=== PATIENT | male | born 1990 | race Caucasian/White ===

== ENCOUNTER 2024-03-13 20:18 | Inpatient (IN) | payer OTHER, MEDICAID, SELFPAY ==
[2024-03-13 20:47] VITALS: BP 140/90; PULSE 80; O2SAT 99; BMI 25.8
[2024-03-13 21:39] LABS: MANUAL DIFF FLAG NO
[2024-03-13 21:45] LABS: Basophils Absolute Auto 0.1 X10*3/uL (0.0-0.2); Eosinophils Absolute Auto 0.8 X10*3/uL (0.0-0.4); Eosinophils Percent Auto 15.9 % (0-4); Hematocrit 44.2 % (42.0-52.0); Hemoglobin 15.5 g/dl (14.0-18.0); Imm Gran Abs Auto 0.01 X10*3/uL (0.00-0.03); Imm Gran Pct Auto 0.2 % (0.0-0.4); Lymphocytes Absolute Auto 1.9 X10*3/uL (1.2-4.9); Mean Corpuscular HGB Conc 35.1 g/dl (31.0-36.0); Mean Corpuscular Hemoglobin 31.2 pg (27.0-33.0); Mean Corpuscular Volume 88.9 fL (80.0-98.0); Mean Platelet Volume 10.4 fL (9.4-12.4); Monocytes Absolute Auto 0.4 X10*3/uL (0.1-1.2); Monocytes Percent Auto 7.4 % (2-11); Neutrophils Absolute Auto 1.9 x10*3/uL (2.0-8.3); Neutrophils Percent Auto 37.5 % (45-73); Platelet Count 192 X10*3/uL (160-400); Red Blood Count 4.97 X10*6/uL (4.60-5.80); Red Cell Distribution Width 12.4 % (11.0-16.0); White Blood Count 5.1 X10*3/uL (4.8-10.8)
[2024-03-13 21:59] LABS: Amphetamine Screen Urine Not Detected (Not Detect); Barbiturates, Urine Not Detected (Not Detect); Benzodiazepines Screen Urine Not Detected (Not Detect); Buprenorphine Scr Not Detected (Not Detect); Cannabinoid Screen Urine POSITIVE (Not Detect); Cocaine Screen Urine Not Detected (Not Detect); Fentanyl, urine Not Detected (Not Detect); Methadone Screen, Urine Not Detected (Not Detect); Opiate Screen Urine Not Detected (Not Detect); Oxycodone Screen Urine Not Detected (Not Detect); Phencyclidine Screen Urine Not Detected (Not Detect)
[2024-03-13 22:08] LABS: Alanine Aminotransferase 21 U/L (0-40); Albumin Level 4.2 g/dL (3.5-5.0); Alkaline Phosphatase 52 U/L (39-117); Anion Gap 12 (12-20); Aspartate Amino Transferase 26 U/L (5-37); Bilirubin Direct 0.3 mg/dL (0.0-0.5); Bilirubin Total 0.8 mg/dL (0.0-1.0); Blood Urea Nitrogen 9 mg/dL (9-16); Calcium 9.5 mg/dL (8.4-10.2); Carbon Dioxide 25 mmol/L (22-29); Chloride 106 mmol/L (96-108); Creatinine Clr Calc Pharmacy 121.8; Estimated Glomerular Filt Rate > 60; Ethanol < 10 mg/dL; Glucose Random 101 mg/dL (60-115); Potassium 3.6 mmol/L (3.3-5.1); Sodium 139 mmol/L (135-145); Total Protein 7.2 g/dL (6.5-8.0)
[2024-03-13 22:45] VITALS: BP 123/78; PULSE 58; RESP 16; TEMP 37.3; O2SAT 100
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
[2024-03-14 06:00] VITALS: RESP 16
--- NOTE | 2024-03-14 06:09 | PC.NURSE ---
Pt calm and cooperative throughout the night. Slept well. Plan for re-evaluation by CARE team in the AM.
--- NOTE | 2024-03-14 07:02 | PC.NURSE ---
Assumed care of PT a 0645. At this time the PT is observed to be resting quietly in their bed. No distress observed, breathing is even and unlabored.
[2024-03-14 08:15] LABS: Appearance Urine Clear; Color Urine Yellow; Glucose Urine UA Negative (Negative); Leukocyte Esterase Urine Negative (Negative); Nitrite Urine Negative (Negative); Specific Gravity - Urine 1.025 (1.005-1.025); Urine Blood Negative (Negative); Urine Ketones Negative (Negative); Urine Protein Negative (Neg-Trace)
--- NOTE | 2024-03-14 11:38 | MHC.CARE ---
Pt will be an inpatient bedsearch
[2024-03-14] MEDS: Nicotine Polacrilex 2 MG GUM BUCCAL ×3 (12:49→23:49)
[2024-03-14] MEDS: LORazepam 1 MG TABLET PO (16:59)
--- NOTE | 2024-03-14 18:50 | PC.NURSE ---
Assumed care of patient at 1845. Patient observed to be calmly speaking on the phone/ No distress noted.
--- NOTE | 2024-03-14 22:45 | PC.NURSE ---
Patient up and wandering around. was trying to peer into others rooms. Redirected patient. yardage control clerk utilized to communicated with patient.
--- NOTE | 2024-03-14 22:50 | PC.NURSE ---
Patient very adament about getting his suitcase. historical interpreter assisted staff in understanding and assisting.
[2024-03-14] MEDS: LORazepam 1 MG TABLET 2 MG PO (23:46)
--- NOTE | 2024-03-14 23:50 | PC.NURSE ---
patient become loud and boisterous, ativan order obtained. patient took ativan without issue and is currently pacing around the unit
--- NOTE | 2024-03-14 23:55 | PC.NURSE ---
Patient re-entered room and looked at camera and made slashing action across his neck, then came out to the family room and took a pillow, punched the pillow, and returned to room.
--- NOTE | 2024-03-15 00:14 | PC.NURSE ---
patient noted to have taken gown off, moved chair in front of door and now doing push-ups on the ground. Will continue to monitor.
--- NOTE | 2024-03-15 00:20 | PC.NURSE ---
Patient at this point pacing back and forth. Speaking loudly in hungarian. newsperson called for assistance.
[2024-03-15 07:31] VITALS: RESP 16
--- NOTE | 2024-03-15 07:47 | PC.NURSE ---
Assumed care of patient at 0645, patient appears to be manic this am, tangential/pressured speech, delusions about having millions of dollars to spend but being poor at the same time. Pt reports he does not need to be here. Patient aware of plan of care for inpatient bedsearch at this time
--- NOTE | 2024-03-15 08:00 | PHA.MEDREC ---
Pharmacy Consult ? Medication Reconciliation Pharmacy has reviewed the medication reconciliation completed by nursing. Confirmed with nursing that the patient is currently not on any home medications. Pt has not taken any meds in over two years.
[2024-03-15] MEDS: Nicotine Polacrilex 2 MG GUM BUCCAL (10:28)
[2024-03-15 13:24] VITALS: BP 137/81; PULSE 88; RESP 16; TEMP 36.8; O2SAT 100
[2024-03-15 13:25] VITALS: BMI 30.7
[2024-03-15] MEDS: LORazepam 1 MG TABLET 2 MG PO (14:33)
[2024-03-15] MEDS: Nicotine Polacrilex 2 MG GUM 4 MG BUCCAL ×2 (14:35→20:42)
[2024-03-15] MEDS: Nicotine 21 MG PATCH.TD24 TRANSDERMA (15:40)
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
[2024-03-15 20:00] VITALS: BP 145/85; PULSE 77; RESP 16; O2SAT 100
[2024-03-15] MEDS: OLANZapine ODT 10 MG TAB.RAPDIS TRANSLINGU (20:36)
[2024-03-15] MEDS: traZODone HCL 50 MG TABLET PO (20:41)
[2024-03-15] MEDS: Acetaminophen 325 MG TABLET 650 MG PO (20:41)
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
[2024-03-16] MEDS: Nicotine Polacrilex 2 MG GUM 4 MG BUCCAL ×3 (09:59→13:11)
[2024-03-16] MEDS: Acetaminophen 325 MG TABLET 650 MG PO (09:59)
[2024-03-16] MEDS: Nicotine 21 MG PATCH.TD24 TRANSDERMA (09:59)
[2024-03-16] MEDS: LORazepam 1 MG TABLET PO ×2 (13:09→21:53)
[2024-03-16] MEDS: OLANZapine 5 MG TABLET PO (13:09)
[2024-03-16 20:00] VITALS: BP 160/90; PULSE 71; RESP 16; TEMP 36.5; O2SAT 100
[2024-03-16] MEDS: OLANZapine 10 MG TABLET PO (21:54)
[2024-03-16] MEDS: OLANZapine ODT 10 MG TAB.RAPDIS 20 MG TRANSLINGU (22:01)
[2024-03-16] MEDS: traZODone HCL 50 MG TABLET PO (22:02)
[2024-03-17] MEDS: Nicotine 21 MG PATCH.TD24 TRANSDERMA (06:52)
[2024-03-17] MEDS: Nicotine Polacrilex 2 MG GUM 4 MG BUCCAL ×3 (06:52→18:35)
[2024-03-17 08:00] VITALS: BP 166/96; PULSE 83; RESP 18; TEMP 36.4; O2SAT 100
[2024-03-17 09:44] LABS: Ammonia 29 umol/L (13-55)
[2024-03-17 09:46] LABS: Estimated Average Glucose 105 mg/dL; Hemoglobin A1C 141.7104 umol/L; Hemoglobin A1c % 5.3 % (<6.0); Total Hemoglobin (HGBA1C) 4139.7183 umol/L
[2024-03-17] MEDS: OLANZapine 10 MG TABLET PO ×2 (09:53→11:26)
[2024-03-17 10:03] LABS: Cholesterol 103 mg/dL (<200); HDL Cholesterol 35 mg/dL (>40); LDL Cholesterol Calculated 42 mg/dL (<100); Triglycerides 131 mg/dL (<150)
[2024-03-17 10:11] LABS: TSH reflex Free T4 1.57 uIU/mL (0.32-4.0)
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
[2024-03-17] MEDS: LORazepam 1 MG TABLET PO ×2 (11:28→20:14)
[2024-03-17] MEDS: HaloperidoL 5 MG TABLET 10 MG PO (11:52)
[2024-03-17] MEDS: diphenhydrAMINE HCL 25 MG CAPSULE 50 MG PO (11:52)
[2024-03-17] MEDS: LORazepam 1 MG TABLET 2 MG PO (11:52)
[2024-03-17 20:00] VITALS: BP 139/81; PULSE 91; RESP 18; TEMP 36.3; O2SAT 98
[2024-03-17] MEDS: risperiDONE 2 MG TABLET PO (20:14)
[2024-03-17] MEDS: traZODone HCL 50 MG TABLET PO (20:14)
[2024-03-17] MEDS: OLANZapine ODT 10 MG TAB.RAPDIS 20 MG TRANSLINGU (20:14)
[2024-03-17] MEDS: Acetaminophen 325 MG TABLET 650 MG PO (20:20)
[2024-03-18] MEDS: traZODone HCL 50 MG TABLET PO ×2 (00:41→22:39)
[2024-03-18 08:00] VITALS: BP 141/102; PULSE 71; TEMP 36.3; O2SAT 100
[2024-03-18] MEDS: risperiDONE 2 MG TABLET PO ×2 (08:16→22:39)
[2024-03-18] MEDS: LORazepam 1 MG TABLET PO ×3 (08:16→17:43)
[2024-03-18] MEDS: hydrOXYzine HCL 25 MG TABLET PO ×2 (08:16→17:43)
[2024-03-18] MEDS: Nicotine 21 MG PATCH.TD24 TRANSDERMA (08:19)
[2024-03-18] MEDS: OLANZapine 10 MG TABLET PO ×2 (10:15→17:43)
[2024-03-18] MEDS: Acetaminophen 325 MG TABLET 650 MG PO (10:19)
[2024-03-18] MEDS: chlorproMAZINE HCl 100 MG TABLET PO (10:20)
--- NOTE | 2024-03-18 10:36 | HO.PSYCHPN ---
Subjective Subjective Date of Service: 03/18/24 Reason For Visit: Psychotic/manic Subjective Notes: Section 12B Interim History: Patient was seen and discussed in rounds today. Records and plans were reviewed. He continues to be irritable, pacing, yelling at times and has been having self dialogue. Around 10:00 o'clock he became loud on confront active with another patient and a code was called but he agreed to take p.o. Thorazine 100 mg with good effect and he is in his room. He has been medication compliant. Not attending any groups. No side effects reported. Attending Groups: No Review of Systems Review of Systems Yes Unobtainable due to mental status Mental Status Exam Mental Status Exam Narrative: Could not do a formal exam. Irritable, loud and confront active. Diagnostics Vital Signs (24Hr): Vital Signs - 24 hr 03/17/24 20:00 03/18/24 08:00 Temperature 97.4 F 97.4 F Pulse Rate 91 71 Respiratory Rate 18 Blood Pressure 139/81 141/102 H Pulse Oximetry 98 100 Oxygen Delivery Method Room Air Room Air BMI result Body Mass Index 30.7 Labs 03/13/24 21:31 03/13/24 21:31 Labs: Laboratory Results - last 48 hr 03/17/24 09:10 Estimat Average Glucose 105 Hemoglobin A1c % 5.3 Ammonia 29 Triglycerides 131 Cholesterol 103 LDL Cholesterol, Calc 42 HDL Cholesterol 35 L TSH 1.57 Medications Medications Current Medications Acetaminophen (Acetaminophen 325 Mg Tablet) 650 mg PO Q6H PRN PRN Reason: Headache/Pain Mild Scale (1-3) Last Admin: 03/18/24 10:19 Dose: 650 mg Al Hydroxide/Mg Hydroxide (Magnesium Hydrox/Alum Hydrox 30 Ml Oral.Susp) 30 ml PO Q6H PRN PRN Reason: Heartburn/Nausea Hydroxyzine HCl (Hydroxyzine Hcl 25 Mg Tablet) 25 mg PO Q6H PRN PRN Reason: Anxiety Last Admin: 03/18/24 08:16 Dose: 25 mg Lorazepam (Lorazepam 1 Mg Tablet) 1 mg PO TID PRN PRN Reason: anxiety/agitation Last Admin: 03/18/24 10:18 Dose: 1 mg Magnesium Hydroxide (Milk Of Magnesia 30 Ml Oral.Susp) 30 ml PO DAILY PRN PRN Reason: Constipation Nicotine (Nicotine 21 Mg Patch.Td24) 21 mg TRANSDERMA DAILY PRN PRN Reason: smoking cessation Last Admin: 03/18/24 08:19 Dose: 21 mg Nicotine Polacrilex (Nicotine Polacrilex 2 Mg Gum) 4 mg BUCCAL Q2H PRN PRN Reason: Nicotine Cravings Last Admin: 03/17/24 18:35 Dose: 4 mg Olanzapine (Olanzapine 10 Mg Tablet) 10 mg PO TID PRN PRN Reason: agitation Last Admin: 03/18/24 10:15 Dose: 10 mg Olanzapine (Olanzapine Odt 10 Mg Tab.Rapdis) 20 mg TRANSLINGU BEDTIME ZEINA Last Admin: 03/17/24 20:14 Dose: 20 mg Risperidone (Risperidone 2 Mg Tablet) 2 mg PO BID [facility] Last Admin: 03/18/24 08:16 Dose: 2 mg Trazodone HCl (Trazodone Hcl 50 Mg Tablet) 50 mg PO BEDTIME MRX1 PRN PRN Reason: Insomnia Last Admin: 03/18/24 00:41 Dose: 50 mg Allergies Allergies Allergy/AdvReac Type Severity Reaction Status Date / Time No Known Allergies Allergy Verified 03/13/24 20:59 Assessment & Plan Assessment & Plan (1) Schizoaffective disorder, bipolar type: Status: Acute Code(s): F25.0 - Schizoaffective disorder, bipolar type Plan Mr. Knox is a 33 year-old male with hx of schizoaffective disorder who was brought in by police due to trying to enter other people's homes, presenting as paranoid. He came to [facility] from [place] two months ago to receive psychiatric tx. He was staying at his sister's house but was asked to leave when he suggested sexual intercourse to his niece. He presents as very paranoid, thinking sister is killing people and paid 11 million dollars to keep him in the hospital. 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 Pending collateral information. PLAN 1. Admit to M5, sect 12b, 15 minutes checks 2. increase olanzapine 20mg po qhs. 3. obtain collateral information 4. aftercare planning. 03/18: Continue current regimen and plans. Thorazine p.o. was given this morning Reason for continued inpatient stay Substantial Risk for: rapid decompensation and med/psych decompensation Time Spent With Patient Time: Total time managing care of this patient today ____ minutes.
[2024-03-18] MEDS: Nicotine Polacrilex 2 MG GUM 4 MG BUCCAL ×2 (15:26→17:44)
[2024-03-18] MEDS: OLANZapine ODT 10 MG TAB.RAPDIS 20 MG TRANSLINGU (22:39)
[2024-03-19] MEDS: risperiDONE 2 MG TABLET PO ×2 (07:45→20:50)
[2024-03-19] MEDS: Nicotine 21 MG PATCH.TD24 TRANSDERMA (07:48)
[2024-03-19] MEDS: LORazepam 1 MG TABLET PO ×3 (08:15→20:58)
--- NOTE | 2024-03-19 08:20 | P.PNPSI_ITS ---
Subjective Subjective Date of Service: 03/19/24 Reason For Visit: Psychotic/manic Subjective Notes: Section 12B Interim History: Patient was seen and discussed in rounds today. Records and plans were reviewed. He has been quite psychotic and yesterday had a confrontation with another patient but responded well to security being called and receiving Thorazine 100 mg which was quite helpful. I ordered that as 50 mg q.4 hours p.r.n. for him today. He continues to have lot of self dialogue. Eating and sleeping adequately. Medication Compliance: Yes Side effects from medications: No Attending Groups: No Review of Systems Review of Systems Yes Unobtainable due to mental status Mental Status Exam Mental Status Exam Narrative: In today's visit he appears calmer. He is interactive with in his means. Appears to be responding to internal stimuli. No suicidal ideations expressed. Cognitively could not be assessed. Judgment is impaired. Diagnostics Vital Signs (24Hr): BMI result Body Mass Index 30.7 Labs 03/13/24 21:31 03/13/24 21:31 Labs: Laboratory Results - last 48 hr 03/17/24 09:10 Estimat Average Glucose 105 Hemoglobin A1c % 5.3 Ammonia 29 Triglycerides 131 Cholesterol 103 LDL Cholesterol, Calc 42 HDL Cholesterol 35 L TSH 1.57 Medications Medications Current Medications Acetaminophen (Acetaminophen 325 Mg Tablet) 650 mg PO Q6H PRN PRN Reason: Headache/Pain Mild Scale (1-3) Last Admin: 03/18/24 10:19 Dose: 650 mg Al Hydroxide/Mg Hydroxide (Magnesium Hydrox/Alum Hydrox 30 Ml Oral.Susp) 30 ml PO Q6H PRN PRN Reason: Heartburn/Nausea Chlorpromazine HCl (Chlorpromazine Hcl 25 Mg Tablet) 50 mg PO Q4H PRN PRN Reason: agitation Hydroxyzine HCl (Hydroxyzine Hcl 25 Mg Tablet) 25 mg PO Q6H PRN PRN Reason: Anxiety Last Admin: 03/18/24 17:43 Dose: 25 mg Lorazepam (Lorazepam 1 Mg Tablet) 1 mg PO TID PRN PRN Reason: anxiety/agitation Last Admin: 03/19/24 08:15 Dose: 1 mg Magnesium Hydroxide (Milk Of Magnesia 30 Ml Oral.Susp) 30 ml PO DAILY PRN PRN Reason: Constipation Nicotine (Nicotine 21 Mg Patch.Td24) 21 mg TRANSDERMA DAILY PRN PRN Reason: smoking cessation Last Admin: 03/19/24 07:48 Dose: 21 mg Nicotine Polacrilex (Nicotine Polacrilex 2 Mg Gum) 4 mg BUCCAL Q2H PRN PRN Reason: Nicotine Cravings Last Admin: 03/18/24 17:44 Dose: 4 mg Olanzapine (Olanzapine 10 Mg Tablet) 10 mg PO TID PRN PRN Reason: agitation Last Admin: 03/18/24 17:43 Dose: 10 mg Olanzapine (Olanzapine Odt 10 Mg Tab.Rapdis) 20 mg TRANSLINGU BEDTIME ZEINA Last Admin: 03/18/24 22:39 Dose: 20 mg Risperidone (Risperidone 2 Mg Tablet) 2 mg PO BID ZEINA Last Admin: 03/19/24 07:45 Dose: 2 mg Trazodone HCl (Trazodone Hcl 50 Mg Tablet) 50 mg PO BEDTIME MRX1 PRN PRN Reason: Insomnia Last Admin: 03/18/24 22:39 Dose: 50 mg Allergies Allergies Allergy/AdvReac Type Severity Reaction Status Date / Time No Known Allergies Allergy Verified 03/13/24 20:59 Assessment & Plan Assessment & Plan (1) Schizoaffective disorder, bipolar type: Status: Acute Code(s): F25.0 - Schizoaffective disorder, bipolar type Plan Mr. Knox is a 33 year-old male with hx of schizoaffective disorder who was brought in by police due to trying to enter other people's homes, presenting as paranoid. He came to [facility] from [place] two months ago to receive psychiatric tx. He was staying at his sister's house but was asked to leave when he suggested sexual intercourse to his niece. He presents as very paranoid, thinking sister is killing people and paid 11 million dollars to keep him in the hospital. 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 Pending collateral information. PLAN 1. Admit to M5, sect 12b, 15 minutes checks 2. increase olanzapine 20mg po qhs. 3. obtain collateral information 4. aftercare planning. 03/18: Continue current regimen and plans. Thorazine p.o. was given this morning 03/18: Continue current regimen and plans. Thorazine 50 mg q.4 hours p.r.n.. Patient educated on: medication risk/benefits Reason for continued inpatient stay Substantial Risk for: rapid decompensation and med/psych decompensation Time Spent With Patient Time: Total time managing care of this patient today ____ minutes.
[2024-03-19 08:25] VITALS: BP 119/77; PULSE 109; RESP 18; TEMP 36.6; O2SAT 99
[2024-03-19] MEDS: hydrOXYzine HCL 25 MG TABLET PO (10:19)
[2024-03-19] MEDS: OLANZapine 10 MG TABLET PO (10:19)
[2024-03-19] MEDS: chlorproMAZINE HCl 25 MG TABLET 50 MG PO ×2 (10:19→20:58)
[2024-03-19] MEDS: Acetaminophen 325 MG TABLET 650 MG PO (10:20)
[2024-03-19] MEDS: Nicotine Polacrilex 2 MG GUM 4 MG BUCCAL ×3 (10:21→20:32)
[2024-03-19 20:00] VITALS: BP 126/78; PULSE 98; TEMP 36.4; O2SAT 100
[2024-03-19] MEDS: OLANZapine ODT 10 MG TAB.RAPDIS 20 MG TRANSLINGU (20:57)
[2024-03-19] MEDS: traZODone HCL 50 MG TABLET PO (20:58)
[2024-03-20] MEDS: Nicotine Polacrilex 2 MG GUM 4 MG BUCCAL ×3 (02:58→19:52)
[2024-03-20] MEDS: risperiDONE 2 MG TABLET PO ×2 (08:35→20:16)
[2024-03-20] MEDS: LORazepam 1 MG TABLET PO (08:35)
[2024-03-20] MEDS: Nicotine 21 MG PATCH.TD24 TRANSDERMA (08:41)
--- NOTE | 2024-03-20 09:32 | HO.PSYCHPN ---
Subjective Subjective Date of Service: 03/20/24 Reason For Visit: Psychotic/manic Subjective Notes: Section 12B Interim History: Patient was seen and discussed in rounds today. Records and plans were reviewed. He was seen with an instructor of nursing. He continues to be on one-to-one with some episodes of irritability and loud speech. He appears to be less delusional and doing better with boundaries. Some lability reported. No complaints or side effects. No changes were made today Medication Compliance: Yes Side effects from medications: No Attending Groups: No Review of Systems Review of Systems Yes all other systems are reviewed and are negative Mental Status Exam Mental Status Exam Narrative: In today's visit he appears calmer. He is interactive with in his means. Appears to be responding to internal stimuli. No suicidal ideations expressed. No SI. Cognitively could not be assessed. Judgment is impaired. Diagnostics Vital Signs (24Hr): Vital Signs - 24 hr 03/19/24 20:00 Temperature 97.6 F Pulse Rate 98 Blood Pressure 126/78 Pulse Oximetry 100 Oxygen Delivery Method Room Air BMI result Body Mass Index 30.7 Labs 03/13/24 21:31 03/13/24 21:31 Medications Medications Current Medications Acetaminophen (Acetaminophen 325 Mg Tablet) 650 mg PO Q6H PRN PRN Reason: Headache/Pain Mild Scale (1-3) Last Admin: 03/19/24 10:20 Dose: 650 mg Al Hydroxide/Mg Hydroxide (Magnesium Hydrox/Alum Hydrox 30 Ml Oral.Susp) 30 ml PO Q6H PRN PRN Reason: Heartburn/Nausea Chlorpromazine HCl (Chlorpromazine Hcl 25 Mg Tablet) 50 mg PO Q4H PRN PRN Reason: agitation Last Admin: 03/19/24 20:58 Dose: 50 mg Hydroxyzine HCl (Hydroxyzine Hcl 25 Mg Tablet) 25 mg PO Q6H PRN PRN Reason: Anxiety Last Admin: 03/19/24 10:19 Dose: 25 mg Lorazepam (Lorazepam 1 Mg Tablet) 1 mg PO TID PRN PRN Reason: anxiety/agitation Last Admin: 03/20/24 08:35 Dose: 1 mg Magnesium Hydroxide (Milk Of Magnesia 30 Ml Oral.Susp) 30 ml PO DAILY PRN PRN Reason: Constipation Nicotine (Nicotine 21 Mg Patch.Td24) 21 mg TRANSDERMA DAILY PRN PRN Reason: smoking cessation Last Admin: 03/20/24 08:41 Dose: 21 mg Nicotine Polacrilex (Nicotine Polacrilex 2 Mg Gum) 4 mg BUCCAL Q2H PRN PRN Reason: Nicotine Cravings Last Admin: 03/20/24 02:58 Dose: 4 mg Olanzapine (Olanzapine 10 Mg Tablet) 10 mg PO TID PRN PRN Reason: agitation Last Admin: 03/19/24 10:19 Dose: 10 mg Olanzapine (Olanzapine Odt 10 Mg Tab.Rapdis) 20 mg TRANSLINGU BEDTIME ZEINA Last Admin: 03/19/24 20:57 Dose: 20 mg Risperidone (Risperidone 2 Mg Tablet) 2 mg PO BID ZEINA Last Admin: 03/20/24 08:35 Dose: 2 mg Trazodone HCl (Trazodone Hcl 50 Mg Tablet) 50 mg PO BEDTIME MRX1 PRN PRN Reason: Insomnia Last Admin: 03/19/24 20:58 Dose: 50 mg Allergies Allergies Allergy/AdvReac Type Severity Reaction Status Date / Time No Known Allergies Allergy Verified 03/13/24 20:59 Assessment & Plan Assessment & Plan (1) Schizoaffective disorder, bipolar type: Status: Acute Code(s): F25.0 - Schizoaffective disorder, bipolar type Plan Mr. Knox is a 33 year-old male with hx of schizoaffective disorder who was brought in by police due to trying to enter other people's homes, presenting as paranoid. He came to [facility] from [place] two months ago to receive psychiatric tx. He was staying at his sister's house but was asked to leave when he suggested sexual intercourse to his niece. He presents as very paranoid, thinking sister is killing people and paid 11 million dollars to keep him in the hospital. 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 Pending collateral information. PLAN 03/17 may consider adding haldol scheduled instead of olanzapine. 03/20: Continue current plans and regimen Reason for continued inpatient stay Substantial Risk for: rapid decompensation Time Spent With Patient Time: Total time managing care of this patient today ____ minutes.
[2024-03-20] MEDS: OLANZapine 10 MG TABLET PO (09:50)
[2024-03-20] MEDS: chlorproMAZINE HCl 25 MG TABLET 50 MG PO (09:51)
[2024-03-20 10:22] VITALS: BP 139/85; PULSE 82; RESP 18; TEMP 36.4; O2SAT 98
[2024-03-20] MEDS: Acetaminophen 325 MG TABLET 650 MG PO (18:12)
[2024-03-20 20:00] VITALS: BP 123/61; PULSE 105; RESP 15; TEMP 36.4; O2SAT 99
[2024-03-20] MEDS: OLANZapine ODT 10 MG TAB.RAPDIS 20 MG TRANSLINGU (20:16)
[2024-03-20] MEDS: traZODone HCL 50 MG TABLET PO (20:16)
[2024-03-21] MEDS: traZODone HCL 50 MG TABLET PO (02:24)
[2024-03-21] MEDS: Nicotine Polacrilex 2 MG GUM 4 MG BUCCAL ×2 (02:24→06:54)
[2024-03-21] MEDS: chlorproMAZINE HCl 25 MG TABLET 50 MG PO ×2 (02:25→09:14)
[2024-03-21] MEDS: LORazepam 1 MG TABLET PO ×2 (02:25→10:15)
[2024-03-21] MEDS: Nicotine 21 MG PATCH.TD24 TRANSDERMA (06:52)
[2024-03-21 08:00] VITALS: BP 155/86; PULSE 100; RESP 18; TEMP 36.4; O2SAT 100
[2024-03-21] MEDS: risperiDONE 2 MG TABLET PO (09:10)
[2024-03-21] MEDS: OLANZapine 10 MG TABLET PO (09:14)
[2024-03-21] MEDS: hydrOXYzine HCL 25 MG TABLET PO (09:14)
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
[2024-03-21] MEDS: Haloperidol Lactate 5 MG/ML VIAL 10 MG IM (10:46)
[2024-03-21] MEDS: LORazepam 2 MG/ML VIAL IM (10:47)
[2024-03-21] MEDS: Divalproex Sodium 500 MG TABLET.DR 1000 MG PO (16:34)
[2024-03-21 18:32] VITALS: BP 133/72; PULSE 120; RESP 20; TEMP 36.5; O2SAT 98
[2024-03-22] MEDS: LORazepam 1 MG TABLET PO ×5 (00:59→20:11)
[2024-03-22] MEDS: traZODone HCL 50 MG TABLET PO (00:59)
[2024-03-22 08:05] VITALS: BP 142/94; PULSE 83; RESP 18; TEMP 36.6; O2SAT 100
[2024-03-22] MEDS: chlorproMAZINE HCl 25 MG TABLET 50 MG PO ×2 (08:17→11:57)
[2024-03-22] MEDS: Divalproex Sodium 500 MG TABLET.DR PO ×2 (08:17→20:11)
[2024-03-22] MEDS: risperiDONE 2 MG TABLET PO (08:17)
[2024-03-22] MEDS: chlorproMAZINE HCl 100 MG TABLET PO (13:59)
[2024-03-22] MEDS: LORazepam 1 MG TABLET 2 MG PO (14:33)
[2024-03-22] MEDS: HaloperidoL 5 MG TABLET 10 MG PO (14:35)
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
[2024-03-22 20:00] VITALS: BP 116/70; PULSE 120; RESP 15; TEMP 36.8; O2SAT 98
[2024-03-22] MEDS: HaloperidoL 5 MG TABLET PO (20:11)
[2024-03-22] MEDS: OLANZapine ODT 10 MG TAB.RAPDIS 20 MG TRANSLINGU (20:11)
[2024-03-22] MEDS: Famotidine 20 MG TABLET PO (20:11)
--- NOTE | 2024-03-23 | ECG_ITS ---
Test Reason : r/o QTC PROLONGATION Blood Pressure : / mmHG Vent. Rate : 102 BPM Atrial Rate : 102 BPM P-R Int : 136 ms QRS Dur : 084 ms QT Int : 328 ms P-R-T Axes : 061 018 025 degrees QTc Int : [address] elevation, consider early repolarization Borderline ECG No previous ECGs available Referred By: Edelmira Mendze Electronically Signed By:EDISON RAI
[2024-03-23] MEDS: traZODone HCL 50 MG TABLET PO (00:53)
[2024-03-23] MEDS: Nicotine 21 MG PATCH.TD24 TRANSDERMA (08:06)
[2024-03-23] MEDS: Famotidine 20 MG TABLET PO ×2 (08:07→22:44)
[2024-03-23] MEDS: Divalproex Sodium 500 MG TABLET.DR PO ×3 (08:07→22:43)
[2024-03-23] MEDS: LORazepam 1 MG TABLET PO ×3 (08:07→22:43)
[2024-03-23] MEDS: HaloperidoL 5 MG TABLET PO ×2 (08:07→14:52)
[2024-03-23] MEDS: Nicotine Polacrilex 2 MG GUM 4 MG BUCCAL ×2 (08:08→14:54)
[2024-03-23 08:16] VITALS: BP 153/85; PULSE 98; RESP 18; TEMP 36.6; O2SAT 100
[2024-03-23 10:30] VITALS: BMI 33.4
[2024-03-23] MEDS: diphenhydrAMINE HCL 25 MG CAPSULE 50 MG PO (11:02)
[2024-03-23] MEDS: LORazepam 1 MG TABLET 2 MG PO (11:02)
[2024-03-23] MEDS: HaloperidoL 5 MG TABLET 10 MG PO ×2 (11:02→22:42)
--- NOTE | 2024-03-23 17:14 | HO.PSYCHPN ---
Subjective Subjective Date of Service: 03/23/24 Reason For Visit: Psychotic/manic Subjective Notes: Section 7 Healthcare Proxy: No Guardianship: No Medical Problems Affecting Mental Status: No Interim History: Continues with lability, agitation, aggression to property, breakthrough sx. Sexually inappropriate behaviors with peers. On one to one. Medications continue to titrate, Valproate, Haldol. Pt accepting PO. Continues to demand to leave for five hours to smoke, do errands, check in with [employer] informants. Medication Compliance: Yes Side effects from medications: No Attending Groups: No Review of Systems Acute medical concerns: No Medical Review of Systems: unchanged Review of Systems Review of Systems Yes Unobtainable due to mental status Mental Status Exam Mental Status Exam Patient Appearance: Appropriate Patient Orientation: Person Level of Consciousness: Awake, Restless, Alert and Combative Patient Behavior: Talkative, Hyperactive, Suspicious, Aggressive, Restless, Belligerent, Verbal Threats, Anxious, Combative, Distractible, Confused, Good Eye Contact and Impulsive Mood Description: Labile Affect Description: Labile Patient Cognition Impaired: Yes Ability to Follow Directions: Fair Speech Pattern: Perseverating, Spontaneous Speech, Rambling, Rapid, Excessive and Pressured Memory Description: Remote Impaired Hallucinations: Auditory Delusions: Paranoid Ideation, Grandiose and Present Thought Process: Racing, Illogical, Distracted and Confusion Thought Content: positive for Flight of Ideas, positive for Racing, positive for Preoccupation, positive for Loose Associations, positive for Tangential, positive for Disorganized and positive for Suicidal Ideation (denies) Depressive Symptoms: Increased Irritability and Difficulty Concentrating Abnormal Motor Activity Signs and Symptoms: Aggression, Agitation, Hyperactivity and Restlessness Judgement: Poor Diagnostics Vital Signs (24Hr): Vital Signs - 24 hr 03/22/24 20:00 03/23/24 08:16 Temperature 98.3 F 97.8 F Pulse Rate 120 H 98 Respiratory Rate 15 18 Blood Pressure 116/70 153/85 H Pulse Oximetry 98 100 Oxygen Delivery Method Room Air BMI result Body Mass Index 33.4 Labs 03/13/24 21:31 03/13/24 21:31 Medications Medications Current Medications Acetaminophen (Acetaminophen 325 Mg Tablet) 650 mg PO Q6H PRN PRN Reason: Headache/Pain Mild Scale (1-3) Last Admin: 03/20/24 18:12 Dose: 650 mg Al Hydroxide/Mg Hydroxide (Magnesium Hydrox/Alum Hydrox 30 Ml Oral.Susp) 30 ml PO Q6H PRN PRN Reason: Heartburn/Nausea Divalproex Sodium (Divalproex Sodium 500 Mg Tablet.Dr) 500 mg PO TID [facility] Last Admin: 03/23/24 14:52 Dose: 500 mg Famotidine (Famotidine 20 Mg Tablet) 20 mg PO BID [facility] Last Admin: 03/23/24 08:07 Dose: 20 mg Haloperidol (Haloperidol 5 Mg Tablet) 5 mg PO TID [facility] Last Admin: 03/23/24 14:52 Dose: 5 mg Lorazepam (Lorazepam 1 Mg Tablet) 1 mg PO TID PRN PRN Reason: anxiety/agitation Last Admin: 03/22/24 18:53 Dose: 1 mg Lorazepam (Lorazepam 1 Mg Tablet) 1 mg PO TID [facility] Last Admin: 03/23/24 14:52 Dose: 1 mg Magnesium Hydroxide (Milk Of Magnesia 30 Ml Oral.Susp) 30 ml PO DAILY PRN PRN Reason: Constipation Nicotine (Nicotine 21 Mg Patch.Td24) 21 mg TRANSDERMA DAILY PRN PRN Reason: smoking cessation Last Admin: 03/23/24 08:06 Dose: 21 mg Nicotine Polacrilex (Nicotine Polacrilex 2 Mg Gum) 4 mg BUCCAL Q2H PRN PRN Reason: Nicotine Cravings Last Admin: 03/23/24 14:54 Dose: 4 mg Olanzapine (Olanzapine Odt 10 Mg Tab.Rapdis) 20 mg TRANSLINGU BEDTIME [facility] Last Admin: 03/22/24 20:11 Dose: 20 mg Trazodone HCl (Trazodone Hcl 50 Mg Tablet) 50 mg PO BEDTIME MRX1 PRN PRN Reason: Insomnia Last Admin: 03/23/24 00:53 Dose: 50 mg Allergies Allergies Allergy/AdvReac Type Severity Reaction Status Date / Time No Known Allergies Allergy Verified 03/13/24 20:59 Assessment & Plan Assessment & Plan (1) Schizoaffective disorder, bipolar type: Status: Acute Code(s): F25.0 - Schizoaffective disorder, bipolar type Plan Mr. Knox is a 33 year-old male with hx of schizoaffective disorder who was brought in by police due to trying to enter other people's homes, presenting as paranoid. He came to [facility] from [place] two months ago to receive psychiatric tx. He was staying at his sister's house but was asked to leave when he suggested sexual intercourse to his niece. He presents as very paranoid, thinking sister is killing people and paid 11 million dollars to keep him in the hospital. 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 Pending collateral information. PLAN 03/17 may consider adding haldol scheduled instead of olanzapine. 03/20: Continue current plans and regimen 03/21 start depakote one time loading dose of 1000mg po once, depakote 500mg po BID. He had IM Haldol IM ativan 2mg after pushing peer, which he agreed to receive. unclear if haldol may be more effective for him or to wait on risperidone. 03/22 DC Risperdal, Chlorpromazine Continue Haldol, scheduled and prn as has been more effective in relief for pt. 03/23 EKG Increase Haldol to 10 mg tid Benztropine 1 mg bid Reason for continued inpatient stay Substantial Risk for: rapid decompensation Time Spent With Patient Time: Total time managing care of this patient today ____ minutes.
[2024-03-23 20:00] VITALS: BP 121/68; PULSE 115; TEMP 36.9; O2SAT 100
[2024-03-23] MEDS: Benztropine Mesylate 1 MG TABLET PO (22:43)
[2024-03-23] MEDS: OLANZapine ODT 10 MG TAB.RAPDIS 20 MG TRANSLINGU (22:44)
[2024-03-24 08:00] VITALS: BP 130/86; PULSE 99; RESP 18; TEMP 36.4; O2SAT 98
[2024-03-24] MEDS: HaloperidoL 5 MG TABLET 10 MG PO ×3 (09:11→21:22)
[2024-03-24] MEDS: Nicotine 21 MG PATCH.TD24 TRANSDERMA (09:11)
[2024-03-24] MEDS: Famotidine 20 MG TABLET PO ×2 (09:12→21:22)
[2024-03-24] MEDS: Nicotine Polacrilex 2 MG GUM 4 MG BUCCAL ×2 (09:12→18:26)
[2024-03-24] MEDS: Divalproex Sodium 500 MG TABLET.DR PO ×3 (09:12→21:22)
[2024-03-24] MEDS: LORazepam 1 MG TABLET PO ×5 (09:12→21:21)
[2024-03-24] MEDS: Benztropine Mesylate 1 MG TABLET PO (09:12)
--- NOTE | 2024-03-24 09:39 | PC.NURSE ---
Addendum entered by Sherry Kapoor RN 03/24/24 10:22: Pt stated that he no longer wanted injection medication and requested to have additional PO medication to help reduce anxiety/agitation. Provider made aware and patient accepted PO medications. Original Note: Pt noted to be agitated this morning, shouting in the hallway and banging on the wall. Monogram Technician called to unit. chief operations officer on unit. Pt verbalized frustration with inability to leave the unit to smoke marijuana. When offered prn medication to help stay in behavioral control, but stated yes but I need the injection , and then proceeded to point to his left arm. Pt stated the injection the other day helped him. Provider made aware.
[2024-03-24] MEDS: diphenhydrAMINE HCL 25 MG CAPSULE 50 MG PO ×3 (10:20→21:21)
--- NOTE | 2024-03-24 17:05 | P.PNPSI_ITS ---
Subjective Subjective Date of Service: 03/24/24 Reason For Visit: Psychotic/manic Subjective Notes: Section 7 Healthcare Proxy: No Guardianship: No Medical Problems Affecting Mental Status: No Interim History: Accepting medications with some difficulty. 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 Overall less intensity of agitation with medicine increases. Medication Compliance: Yes Side effects from medications: No Attending Groups: No Review of Systems Acute medical concerns: No Review of Systems Review of Systems Yes Unobtainable due to mental status Mental Status Exam Mental Status Exam Patient Appearance: Appropriate Patient Orientation: Person Level of Consciousness: Awake, Restless, Alert and Combative Patient Behavior: Talkative, Hyperactive, Suspicious, Aggressive, Restless, Belligerent, Verbal Threats, Anxious, Combative, Distractible, Confused, Good Eye Contact and Impulsive Mood Description: Labile Affect Description: Labile Patient Cognition Impaired: Yes Ability to Follow Directions: Fair Speech Pattern: Perseverating, Spontaneous Speech, Rambling, Rapid, Excessive and Pressured Memory Description: Remote Impaired Hallucinations: Auditory Delusions: Paranoid Ideation, Grandiose and Present Thought Process: Racing, Illogical, Distracted and Confusion Thought Content: positive for Flight of Ideas, positive for Racing, positive for Preoccupation, positive for Loose Associations, positive for Tangential, positive for Disorganized and positive for Suicidal Ideation (denies) Depressive Symptoms: Increased Irritability and Difficulty Concentrating Abnormal Motor Activity Signs and Symptoms: Aggression, Agitation, Hyperactivity and Restlessness Judgement: Poor Diagnostics Vital Signs (24Hr): Vital Signs - 24 hr 03/23/24 20:00 03/24/24 08:00 Temperature 98.5 F 97.5 F Pulse Rate 115 H 99 Respiratory Rate 18 Blood Pressure 121/68 130/86 Pulse Oximetry 100 98 Oxygen Delivery Method Room Air Room Air BMI result Body Mass Index 33.4 Labs 03/13/24 21:31 03/13/24 21:31 Medications Medications Current Medications Acetaminophen (Acetaminophen 325 Mg Tablet) 650 mg PO Q6H PRN PRN Reason: Headache/Pain Mild Scale (1-3) Last Admin: 03/20/24 18:12 Dose: 650 mg Al Hydroxide/Mg Hydroxide (Magnesium Hydrox/Alum Hydrox 30 Ml Oral.Susp) 30 ml PO Q6H PRN PRN Reason: Heartburn/Nausea Diphenhydramine HCl (Diphenhydramine Hcl 25 Mg Capsule) 50 mg PO BID [facility] Last Admin: 03/24/24 12:01 Dose: Not Given Divalproex Sodium (Divalproex Sodium 500 Mg Tablet.Dr) 500 mg PO TID [facility] Last Admin: 03/24/24 14:48 Dose: 500 mg Famotidine (Famotidine 20 Mg Tablet) 20 mg PO BID [facility] Last Admin: 03/24/24 09:12 Dose: 20 mg Haloperidol (Haloperidol 5 Mg Tablet) 10 mg PO TID [facility] Last Admin: 03/24/24 14:49 Dose: 10 mg Lorazepam (Lorazepam 1 Mg Tablet) 1 mg PO TID PRN PRN Reason: anxiety/agitation Last Admin: 03/24/24 10:20 Dose: 1 mg Lorazepam (Lorazepam 1 Mg Tablet) 1 mg PO TID [facility] Last Admin: 03/24/24 14:48 Dose: 1 mg Magnesium Hydroxide (Milk Of Magnesia 30 Ml Oral.Susp) 30 ml PO DAILY PRN PRN Reason: Constipation Nicotine (Nicotine 21 Mg Patch.Td24) 21 mg TRANSDERMA DAILY PRN PRN Reason: smoking cessation Last Admin: 03/24/24 09:11 Dose: 21 mg Nicotine Polacrilex (Nicotine Polacrilex 2 Mg Gum) 4 mg BUCCAL Q2H PRN PRN Reason: Nicotine Cravings Last Admin: 03/24/24 09:12 Dose: 4 mg Olanzapine (Olanzapine Odt 10 Mg Tab.Rapdis) 20 mg TRANSLINGU BEDTIME [facility] Last Admin: 03/23/24 22:44 Dose: 20 mg Trazodone HCl (Trazodone Hcl 50 Mg Tablet) 50 mg PO BEDTIME MRX1 PRN PRN Reason: Insomnia Last Admin: 03/23/24 00:53 Dose: 50 mg Allergies Allergies Allergy/AdvReac Type Severity Reaction Status Date / Time No Known Allergies Allergy Verified 03/13/24 20:59 Assessment & Plan Assessment & Plan (1) Schizoaffective disorder, bipolar type: Status: Acute Code(s): F25.0 - Schizoaffective disorder, bipolar type Plan Mr. Knox is a 33 year-old male with hx of schizoaffective disorder who was brought in by police due to trying to enter other people's homes, presenting as paranoid. He came to [facility] from [place] two months ago to receive psychiatric tx. He was staying at his sister's house but was asked to leave when he suggested sexual intercourse to his niece. He presents as very paranoid, thinking sister is killing people and paid 11 million dollars to keep him in the hospital. 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 Pending collateral information. PLAN 03/17 may consider adding haldol scheduled instead of olanzapine. 03/20: Continue current plans and regimen 03/21 start depakote one time loading dose of 1000mg po once, depakote 500mg po BID. He had IM Haldol IM ativan 2mg after pushing peer, which he agreed to receive. unclear if haldol may be more effective for him or to wait on risperidone. 03/22 DC Risperdal, Chlorpromazine Continue Haldol, scheduled and prn as has been more effective in relief for pt. 03/23 EKG Increase Haldol to 10 mg tid Benztropine 1 mg bid 03/24 DC Benztropine Benadryl 50 mg bid (pt finds this more helpful he reports, team concurs) Reason for continued inpatient stay Substantial Risk for: rapid decompensation Time Spent With Patient Time: Total time managing care of this patient today ____ minutes.
[2024-03-24 20:00] VITALS: RESP 16
[2024-03-24] MEDS: OLANZapine ODT 10 MG TAB.RAPDIS 20 MG TRANSLINGU (21:22)
[2024-03-25] MEDS: LORazepam 1 MG TABLET PO ×3 (06:29→22:23)
[2024-03-25 08:00] VITALS: BP 126/85; PULSE 96; TEMP 36.3; O2SAT 99
--- NOTE | 2024-03-25 08:58 | HO.PSYCHPN ---
Subjective Subjective Date of Service: 03/25/24 Reason For Visit: Psychotic/manic Subjective Notes: Section 7 Interim History: Accepting meds but reports his stomach is upset at times. Pepcid changed to Prilosec. Discussed rationale for admission. Pt continues to be unable to hear this. Took out his paperwork from his belongings to show team that he has a home in [place] that he believes his family is attempting to take from him. No deed found. Increasingly able to tolerate distress and reality orientation activities yet continues to not accept explanations. States family is coming for him today to bring him home. Medication Compliance: Yes Side effects from medications: Yes (?GI SE) Attending Groups: No Review of Systems Acute medical concerns: No Medical Review of Systems: unchanged Mental Status Exam Mental Status Exam Patient Appearance: Appropriate Patient Orientation: Person Level of Consciousness: Awake, Restless, Alert and Combative Patient Behavior: Talkative, Hyperactive, Suspicious, Aggressive, Restless, Belligerent, Verbal Threats, Anxious, Combative, Distractible, Confused, Good Eye Contact and Impulsive Mood Description: Labile Affect Description: Labile Patient Cognition Impaired: Yes Ability to Follow Directions: Fair Speech Pattern: Perseverating, Spontaneous Speech, Rambling, Rapid, Excessive and Pressured Memory Description: Remote Impaired Hallucinations: Auditory Delusions: Paranoid Ideation, Grandiose and Present Thought Process: Racing, Illogical, Distracted and Confusion Thought Content: positive for Flight of Ideas, positive for Racing, positive for Preoccupation, positive for Loose Associations, positive for Tangential, positive for Disorganized and positive for Suicidal Ideation (denies) Depressive Symptoms: Increased Irritability and Difficulty Concentrating Abnormal Motor Activity Signs and Symptoms: Aggression, Agitation, Hyperactivity and Restlessness Judgement: Poor Diagnostics Vital Signs (24Hr): Vital Signs - 24 hr 03/24/24 20:00 03/25/24 08:00 Temperature 97.4 F Pulse Rate 96 Respiratory Rate 16 Blood Pressure 126/85 Pulse Oximetry 99 Oxygen Delivery Method Room Air BMI result Body Mass Index 33.4 Labs 03/13/24 21:31 03/13/24 21:31 Medications Medications Current Medications Acetaminophen (Acetaminophen 325 Mg Tablet) 650 mg PO Q6H PRN PRN Reason: Headache/Pain Mild Scale (1-3) Last Admin: 03/20/24 18:12 Dose: 650 mg Al Hydroxide/Mg Hydroxide (Magnesium Hydrox/Alum Hydrox 30 Ml Oral.Susp) 30 ml PO Q6H PRN PRN Reason: Heartburn/Nausea Diphenhydramine HCl (Diphenhydramine Hcl 25 Mg Capsule) 50 mg PO BID [facility] Last Admin: 03/24/24 21:21 Dose: 50 mg Divalproex Sodium (Divalproex Sodium 500 Mg Tablet.Dr) 500 mg PO TID [facility] Last Admin: 03/24/24 21:22 Dose: 500 mg Famotidine (Famotidine 20 Mg Tablet) 20 mg PO BID [facility] Last Admin: 03/24/24 21:22 Dose: 20 mg Haloperidol (Haloperidol 5 Mg Tablet) 10 mg PO TID [facility] Last Admin: 03/24/24 21:22 Dose: 10 mg Lorazepam (Lorazepam 1 Mg Tablet) 1 mg PO TID PRN PRN Reason: anxiety/agitation Last Admin: 03/25/24 06:29 Dose: 1 mg Lorazepam (Lorazepam 1 Mg Tablet) 1 mg PO TID [facility] Last Admin: 03/24/24 21:21 Dose: 1 mg Magnesium Hydroxide (Milk Of Magnesia 30 Ml Oral.Susp) 30 ml PO DAILY PRN PRN Reason: Constipation Nicotine (Nicotine 21 Mg Patch.Td24) 21 mg TRANSDERMA DAILY PRN PRN Reason: smoking cessation Last Admin: 03/24/24 09:11 Dose: 21 mg Nicotine Polacrilex (Nicotine Polacrilex 2 Mg Gum) 4 mg BUCCAL Q2H PRN PRN Reason: Nicotine Cravings Last Admin: 03/24/24 18:26 Dose: 4 mg Olanzapine (Olanzapine Odt 10 Mg Tab.Rapdis) 20 mg TRANSLINGU BEDTIME [facility] Last Admin: 03/24/24 21:22 Dose: 20 mg Trazodone HCl (Trazodone Hcl 50 Mg Tablet) 50 mg PO BEDTIME MRX1 PRN PRN Reason: Insomnia Last Admin: 03/23/24 00:53 Dose: 50 mg Allergies Allergies Allergy/AdvReac Type Severity Reaction Status Date / Time No Known Allergies Allergy Verified 03/13/24 20:59 Assessment & Plan Assessment & Plan (1) Schizoaffective disorder, bipolar type: Status: Acute Code(s): F25.0 - Schizoaffective disorder, bipolar type Plan Mr. Knox is a 33 year-old male with hx of schizoaffective disorder who was brought in by police due to trying to enter other people's homes, presenting as paranoid. He came to [facility] from [place] two months ago to receive psychiatric tx. He was staying at his sister's house but was asked to leave when he suggested sexual intercourse to his niece. He presents as very paranoid, thinking sister is killing people and paid 11 million dollars to keep him in the hospital. 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 Pending collateral information. PLAN 03/17 may consider adding haldol scheduled instead of olanzapine. 03/20: Continue current plans and regimen 03/21 start depakote one time loading dose of 1000mg po once, depakote 500mg po BID. He had IM Haldol IM ativan 2mg after pushing peer, which he agreed to receive. unclear if haldol may be more effective for him or to wait on risperidone. 03/22 DC Risperdal, Chlorpromazine Continue Haldol, scheduled and prn as has been more effective in relief for pt. 03/23 EKG Increase Haldol to 10 mg tid Benztropine 1 mg bid 03/24 DC Benztropine Benadryl 50 mg bid (pt finds this more helpful he reports, team concurs) 03/25 DC Pepcid Prilosec 20 mg bid for reports of intermittent GI distress Reason for continued inpatient stay Substantial Risk for: rapid decompensation Time Spent With Patient Time: Total time managing care of this patient today ____ minutes.
[2024-03-25] MEDS: Nicotine 21 MG PATCH.TD24 TRANSDERMA (09:00)
[2024-03-25] MEDS: HaloperidoL 5 MG TABLET 10 MG PO ×3 (09:00→22:23)
[2024-03-25] MEDS: Divalproex Sodium 500 MG TABLET.DR PO ×3 (09:01→22:22)
[2024-03-25] MEDS: diphenhydrAMINE HCL 25 MG CAPSULE 50 MG PO ×2 (09:01→22:22)
[2024-03-25] MEDS: Famotidine 20 MG TABLET PO (09:01)
[2024-03-25] MEDS: Nicotine Polacrilex 2 MG GUM 4 MG BUCCAL ×3 (09:01→15:04)
[2024-03-25] MEDS: LORazepam 2 MG/ML VIAL IM (14:58)
[2024-03-25] MEDS: diphenhydrAMINE HCL 50 MG/ML VIAL IM (14:58)
[2024-03-25] MEDS: Omeprazole 20 MG CAPSULE.DR PO (17:17)
[2024-03-25 22:15] VITALS: BP 152/78; PULSE 96; RESP 16; TEMP 36.6; O2SAT 98
[2024-03-25] MEDS: OLANZapine ODT 10 MG TAB.RAPDIS 20 MG TRANSLINGU (22:22)
[2024-03-25] MEDS: traZODone HCL 50 MG TABLET PO (22:23)
[2024-03-26] MEDS: LORazepam 1 MG TABLET PO ×5 (06:18→20:17)
[2024-03-26] MEDS: Omeprazole 20 MG CAPSULE.DR PO (06:18)
[2024-03-26] MEDS: Nicotine 21 MG PATCH.TD24 TRANSDERMA (07:01)
[2024-03-26] MEDS: HaloperidoL 5 MG TABLET 10 MG PO ×3 (07:03→20:16)
[2024-03-26] MEDS: diphenhydrAMINE HCL 25 MG CAPSULE 50 MG PO ×2 (07:04→20:16)
--- NOTE | 2024-03-26 07:06 | PC.NURSE ---
accepting AM medications at this time
[2024-03-26 08:36] VITALS: BP 137/100; PULSE 99; TEMP 36.4; O2SAT 98
--- NOTE | 2024-03-26 09:07 | P.PNPSI_ITS ---
Subjective Subjective Date of Service: 03/26/24 Reason For Visit: Psychotic/manic Subjective Notes: Section 7 Healthcare Proxy: No Guardianship: No Medical Problems Affecting Mental Status: No Interim History: Pt celebrating his birthday today. Tells tw family will come to take him home today. We have decreased to five minute checks to assess behavioral control. Visable in milieu. Social with team, peers Continues with psychotic/ delusional sx-no agitation when we met today Some improvement, yet easily can trigger and become agitated. Medication Compliance: Yes Side effects from medications: No Attending Groups: No Review of Systems Acute medical concerns: No Medical Review of Systems: unchanged Review of Systems Review of Systems Yes all other systems are reviewed and are negative Mental Status Exam Mental Status Exam Patient Appearance: Appropriate Patient Orientation: Person Level of Consciousness: Awake, Restless, Alert and Combative Patient Behavior: Talkative, Hyperactive, Suspicious, Aggressive, Restless, Belligerent, Verbal Threats, Anxious, Combative, Distractible, Confused, Good Eye Contact and Impulsive Mood Description: Labile Affect Description: Labile Patient Cognition Impaired: Yes Ability to Follow Directions: Fair Speech Pattern: Perseverating, Spontaneous Speech, Rambling, Rapid, Excessive and Pressured Memory Description: Remote Impaired Hallucinations: Auditory Delusions: Paranoid Ideation, Grandiose and Present Thought Process: Racing, Illogical, Distracted and Confusion Thought Content: positive for Flight of Ideas, positive for Racing, positive for Preoccupation, positive for Loose Associations, positive for Tangential, positive for Disorganized and positive for Suicidal Ideation (denies) Depressive Symptoms: Increased Irritability and Difficulty Concentrating Abnormal Motor Activity Signs and Symptoms: Aggression, Agitation, Hyperactivity and Restlessness Judgement: Poor Diagnostics Vital Signs (24Hr): Vital Signs - 24 hr 03/25/24 22:15 03/26/24 08:36 Temperature 97.8 F 97.6 F Pulse Rate 96 99 Respiratory Rate 16 Blood Pressure 152/78 H 137/100 H Pulse Oximetry 98 98 Oxygen Delivery Method Room Air Room Air BMI result Body Mass Index 33.4 Labs 03/27/24 08:03 03/13/24 21:31 Medications Medications Current Medications Acetaminophen (Acetaminophen 325 Mg Tablet) 650 mg PO Q6H PRN PRN Reason: Headache/Pain Mild Scale (1-3) Last Admin: 03/20/24 18:12 Dose: 650 mg Al Hydroxide/Mg Hydroxide (Magnesium Hydrox/Alum Hydrox 30 Ml Oral.Susp) 30 ml PO Q6H PRN PRN Reason: Heartburn/Nausea Diphenhydramine HCl (Diphenhydramine Hcl 25 Mg Capsule) 50 mg PO BID [facility] Last Admin: 03/26/24 07:04 Dose: 50 mg Divalproex Sodium (Divalproex Sodium 500 Mg Tablet.) 500 mg PO TID [facility] Last Admin: 03/25/24 22:22 Dose: 500 mg Haloperidol (Haloperidol 5 Mg Tablet) 10 mg PO TID [facility] Last Admin: 03/26/24 07:03 Dose: 10 mg Lorazepam (Lorazepam 1 Mg Tablet) 1 mg PO TID PRN PRN Reason: anxiety/agitation Last Admin: 03/26/24 06:18 Dose: 1 mg Lorazepam (Lorazepam 1 Mg Tablet) 1 mg PO TID [facility] Last Admin: 03/26/24 07:04 Dose: 1 mg Magnesium Hydroxide (Milk Of Magnesia 30 Ml Oral.Susp) 30 ml PO DAILY PRN PRN Reason: Constipation Nicotine (Nicotine 21 Mg Patch.Td24) 21 mg TRANSDERMA DAILY PRN PRN Reason: smoking cessation Last Admin: 03/26/24 07:01 Dose: 21 mg Nicotine Polacrilex (Nicotine Polacrilex 2 Mg Gum) 4 mg BUCCAL Q2H PRN PRN Reason: Nicotine Cravings Last Admin: 03/25/24 15:04 Dose: 4 mg Olanzapine (Olanzapine Odt 10 Mg Tab.Rapdis) 20 mg TRANSLINGU BEDTIME [facility] Last Admin: 03/25/24 22:22 Dose: 20 mg Omeprazole (Omeprazole 20 Mg Capsule.) 20 mg PO BID@0630,1630 [facility] Last Admin: 03/26/24 06:18 Dose: 20 mg Trazodone HCl (Trazodone Hcl 50 Mg Tablet) 50 mg PO BEDTIME MRX1 PRN PRN Reason: Insomnia Last Admin: 03/25/24 22:23 Dose: 50 mg Allergies Allergies Allergy/AdvReac Type Severity Reaction Status Date / Time No Known Allergies Allergy Verified 03/13/24 20:59 Assessment & Plan Assessment & Plan (1) Schizoaffective disorder, bipolar type: Status: Acute Code(s): F25.0 - Schizoaffective disorder, bipolar type Plan Mr. Knox is a 33 year-old male with hx of schizoaffective disorder who was brought in by police due to trying to enter other people's homes, presenting as paranoid. He came to [facility] from [place] two months ago to receive psychiatric tx. He was staying at his sister's house but was asked to leave when he suggested sexual intercourse to his niece. He presents as very paranoid, thinking sister is killing people and paid 11 million dollars to keep him in the hospital. 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 Pending collateral information. PLAN 03/17 may consider adding haldol scheduled instead of olanzapine. 03/20: Continue current plans and regimen 03/21 start depakote one time loading dose of 1000mg po once, depakote 500mg po BID. He had IM Haldol IM ativan 2mg after pushing peer, which he agreed to receive. unclear if haldol may be more effective for him or to wait on risperidone. 03/22 DC Risperdal, Chlorpromazine Continue Haldol, scheduled and prn as has been more effective in relief for pt. 03/23 EKG Increase Haldol to 10 mg tid Benztropine 1 mg bid 03/24 DC Benztropine Benadryl 50 mg bid (pt finds this more helpful he reports, team concurs) 03/25 DC Pepcid Prilosec 20 mg bid for reports of intermittent GI distress 03/26 Diagnostics- Valproate, CBCD, CHEMP Reason for continued inpatient stay Substantial Risk for: rapid decompensation Time Spent With Patient Time: Total time managing care of this patient today ____ minutes.
[2024-03-26] MEDS: Divalproex Sodium 500 MG TABLET.DR PO ×3 (09:47→20:16)
[2024-03-26] MEDS: Nicotine Polacrilex 2 MG GUM 4 MG BUCCAL ×3 (10:12→20:20)
[2024-03-26 20:00] VITALS: BP 104/55; PULSE 111; RESP 15; TEMP 37.1; O2SAT 97
[2024-03-26] MEDS: traZODone HCL 50 MG TABLET PO (20:16)
[2024-03-26] MEDS: OLANZapine ODT 10 MG TAB.RAPDIS 20 MG TRANSLINGU (20:17)
[2024-03-27] MEDS: LORazepam 1 MG TABLET PO ×4 (00:34→22:39)
[2024-03-27] MEDS: traZODone HCL 50 MG TABLET PO ×2 (00:34→22:40)
[2024-03-27] MEDS: Omeprazole 20 MG CAPSULE.DR PO ×2 (07:21→16:22)
[2024-03-27] MEDS: Nicotine 21 MG PATCH.TD24 TRANSDERMA (07:23)
[2024-03-27 08:29] LABS: MANUAL DIFF FLAG NO
[2024-03-27 08:32] LABS: Basophils Percent Auto 0.8 % (0-2); Eosinophils Absolute Auto 0.5 X10*3/uL (0.0-0.4); Eosinophils Percent Auto 10.5 % (0-4); Hematocrit 44.7 % (42.0-52.0); Imm Gran Abs Auto 0.03 X10*3/uL (0.00-0.03); Imm Gran Pct Auto 0.6 % (0.0-0.4); Lymphocytes Absolute Auto 1.2 X10*3/uL (1.2-4.9); Lymphocytes Percent Auto 23.9 % (20-40); Mean Corpuscular HGB Conc 33.6 g/dl (31.0-36.0); Mean Corpuscular Volume 92.4 fL (80.0-98.0); Mean Platelet Volume 10.4 fL (9.4-12.4); Monocytes Absolute Auto 0.5 X10*3/uL (0.1-1.2); Monocytes Percent Auto 10.1 % (2-11); Neutrophils Absolute Auto 2.7 x10*3/uL (2.0-8.3); Neutrophils Percent Auto 54.1 % (45-73); Platelet Count 174 X10*3/uL (160-400); Red Blood Count 4.84 X10*6/uL (4.60-5.80); Red Cell Distribution Width 12.6 % (11.0-16.0)
[2024-03-27 08:50] LABS: Alanine Aminotransferase 40 U/L (0-40); Albumin Level 3.9 g/dL (3.5-5.0); Alkaline Phosphatase 61 U/L (39-117); Anion Gap 14 (12-20); Aspartate Amino Transferase 26 U/L (5-37); Bilirubin Total 0.3 mg/dL (0.0-1.0); Blood Urea Nitrogen 8 mg/dL (9-16); Calcium 9.5 mg/dL (8.4-10.2); Carbon Dioxide 28 mmol/L (22-29); Chloride 103 mmol/L (96-108); Creatinine Clr Calc Pharmacy 136.3; Estimated Glomerular Filt Rate > 60; Glucose Random 102 mg/dL (60-115); Potassium 4.1 mmol/L (3.3-5.1); Sodium 141 mmol/L (135-145); Total Protein 6.9 g/dL (6.5-8.0)
[2024-03-27] MEDS: diphenhydrAMINE HCL 25 MG CAPSULE 50 MG PO ×2 (08:57→22:38)
[2024-03-27] MEDS: Divalproex Sodium 500 MG TABLET.DR PO ×3 (08:57→22:40)
[2024-03-27] MEDS: Nicotine Polacrilex 2 MG GUM 4 MG BUCCAL ×2 (08:57→14:55)
[2024-03-27] MEDS: HaloperidoL 5 MG TABLET 10 MG PO ×3 (08:58→22:39)
[2024-03-27 20:00] VITALS: BP 156/83; PULSE 119; TEMP 36.8; O2SAT 98
--- NOTE | 2024-03-27 21:51 | P.PNPSI_ITS ---
Subjective Subjective Date of Service: 03/27/24 Reason For Visit: Psychotic/manic Interim History: met with pt; discussed with team same presentation; maybe a little easier to redirect. Got into verbal altercation with female peer and said if she was a man he'd punch her. Mental Status Exam Mental Status Exam Patient Appearance: Appropriate Patient Orientation: Person Level of Consciousness: Awake, Restless, Alert and Combative Patient Behavior: Talkative, Hyperactive, Suspicious, Aggressive, Restless, Belligerent, Verbal Threats, Anxious, Combative, Distractible, Confused, Good Eye Contact and Impulsive Mood Description: Labile Affect Description: Labile Patient Cognition Impaired: Yes Ability to Follow Directions: Fair Speech Pattern: Perseverating, Spontaneous Speech, Rambling, Rapid, Excessive and Pressured Memory Description: Remote Impaired Hallucinations: Auditory Delusions: Paranoid Ideation, Grandiose and Present Thought Process: Racing, Illogical, Distracted and Confusion Thought Content: positive for [place], positive for [place], positive for Preoccupation, positive for Loose Associations, positive for Tangential, positive for Disorganized and positive for Suicidal Ideation (denies) Depressive Symptoms: Increased Irritability and Difficulty Concentrating Abnormal Motor Activity Signs and Symptoms: Aggression, Agitation, Hyperactivity and Restlessness Judgement: Poor Diagnostics Vital Signs (24Hr): BMI result Body Mass Index 33.4 Labs 03/27/24 08:03 03/27/24 08:03 Labs: Laboratory Results - last 48 hr 03/27/24 08:03 WBC 5.0 RBC 4.84 Hgb 15.0 Hct 44.7 MCV 92.4 MCH 31.0 MCHC 33.6 RDW 12.6 Plt Count 174 MPV 10.4 Immature Gran % (Auto) 0.6 H Neut % (Auto) 54.1 Lymph % (Auto) 23.9 [place] % (Auto) 10.1 Eos % (Auto) 10.5 H Baso % (Auto) 0.8 Lymph # (Auto) 1.2 [place] # (Auto) 0.5 Eos # (Auto) 0.5 H Baso # (Auto) 0.0 Abs Immat Gran (auto) 0.03 Absolute Neuts (auto) 2.7 Absolute Nucleated RBC 0.000 Nucleated RBC % (auto) 0.0 Sodium 141 Potassium 4.1 Chloride 103 Carbon Dioxide 28 Anion Gap 14 BUN 8 L Creatinine 0.89 Estim Creat Clear Calc 136.3 Estimated GFR > 60 Random Glucose 102 Calcium 9.5 Total Bilirubin 0.3 AST 26 ALT 40 Alkaline Phosphatase 61 Total Protein 6.9 Albumin 3.9 Valproic Acid 72.0 Medications Medications Current Medications Acetaminophen (Acetaminophen 325 Mg Tablet) 650 mg PO Q6H PRN PRN Reason: Headache/Pain Mild Scale (1-3) Last Admin: 03/20/24 18:12 Dose: 650 mg Al Hydroxide/Mg Hydroxide (Magnesium Hydrox/Alum Hydrox 30 Ml Oral.Susp) 30 ml PO Q6H PRN PRN Reason: Heartburn/Nausea Diphenhydramine HCl (Diphenhydramine Hcl 25 Mg Capsule) 50 mg PO BID [facility] Last Admin: 03/27/24 08:57 Dose: 50 mg Divalproex Sodium (Divalproex Sodium 500 Mg Tablet.) 500 mg PO TID [facility] Last Admin: 03/27/24 14:53 Dose: 500 mg Haloperidol (Haloperidol 5 Mg Tablet) 10 mg PO TID [facility] Last Admin: 03/27/24 14:54 Dose: 10 mg Lorazepam (Lorazepam 1 Mg Tablet) 1 mg PO TID PRN PRN Reason: anxiety/agitation Last Admin: 03/27/24 00:34 Dose: 1 mg Lorazepam (Lorazepam 1 Mg Tablet) 1 mg PO TID [facility] Last Admin: 03/27/24 14:54 Dose: 1 mg Magnesium Hydroxide (Milk Of Magnesia 30 Ml Oral.Susp) 30 ml PO DAILY PRN PRN Reason: Constipation Nicotine (Nicotine 21 Mg Patch.Td24) 21 mg TRANSDERMA DAILY PRN PRN Reason: smoking cessation Last Admin: 03/27/24 07:23 Dose: 21 mg Nicotine Polacrilex (Nicotine Polacrilex 2 Mg Gum) 4 mg BUCCAL Q2H PRN PRN Reason: Nicotine Cravings Last Admin: 03/27/24 14:55 Dose: 4 mg Olanzapine (Olanzapine Odt 10 Mg Tab.Rapdis) 20 mg TRANSLINGU BEDTIME [facility] Last Admin: 03/26/24 20:17 Dose: 20 mg Omeprazole (Omeprazole 20 Mg Capsule.) 20 mg PO BID@0630,1630 [facility] Last Admin: 03/27/24 16:22 Dose: 20 mg Trazodone HCl (Trazodone Hcl 50 Mg Tablet) 50 mg PO BEDTIME MRX1 PRN PRN Reason: Insomnia Last Admin: 03/27/24 00:34 Dose: 50 mg Allergies Allergies Allergy/AdvReac Type Severity Reaction Status Date / Time No Known Allergies Allergy Verified 03/13/24 20:59 Assessment & Plan Assessment & Plan (1) Schizoaffective disorder, bipolar type: Status: Acute Code(s): F25.0 - Schizoaffective disorder, bipolar type Plan Mr. Knox is a 33 year-old male with hx of schizoaffective disorder who was brought in by police due to trying to enter other people's homes, presenting as paranoid. He came to [facility] from [place] two months ago to receive psychiatric tx. He was staying at his sister's house but was asked to leave when he suggested sexual intercourse to his niece. He presents as very paranoid, thinking sister is killing people and paid 11 million dollars to keep him in the hospital. 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 Pending collateral information. PLAN 03/17 may consider adding haldol scheduled instead of olanzapine. 03/20: Continue current plans and regimen 03/21 start depakote one time loading dose of 1000mg po once, depakote 500mg po BID. He had IM Haldol IM ativan 2mg after pushing peer, which he agreed to receive. unclear if haldol may be more effective for him or to wait on risperidone. 03/22 DC Risperdal, Chlorpromazine Continue Haldol, scheduled and prn as has been more effective in relief for pt. 03/23 EKG Increase Haldol to 10 mg tid Benztropine 1 mg bid 03/24 DC Benztropine Benadryl 50 mg bid (pt finds this more helpful he reports, team concurs) 03/25 DC Pepcid Prilosec 20 mg bid for reports of intermittent GI distress 03/26 Diagnostics- Valproate, CBCD, CHEMP 03/27 same presentation. reviewed medications and labs and valproic acid Therapeutic. It's possible that it will have increasing effect so will leave at current dose for now. Would consider switching to once/day long acting to help w/ adherence. Patient educated on: diagnosis Informed Consent: does not understand Reason for continued inpatient stay Substantial Risk for: inability to function Time Spent With Patient Time: Total time managing care of this patient today ____ minutes.
[2024-03-27] MEDS: Acetaminophen 325 MG TABLET 650 MG PO (22:37)
[2024-03-27] MEDS: OLANZapine ODT 10 MG TAB.RAPDIS 20 MG TRANSLINGU (22:38)
[2024-03-28 08:00] VITALS: BP 128/84; PULSE 92; RESP 19; TEMP 36.4; O2SAT 98
[2024-03-28] MEDS: Omeprazole 20 MG CAPSULE.DR PO (08:45)
[2024-03-28] MEDS: HaloperidoL 5 MG TABLET 10 MG PO ×2 (08:45→14:27)
[2024-03-28] MEDS: LORazepam 1 MG TABLET PO ×4 (08:45→18:17)
[2024-03-28] MEDS: diphenhydrAMINE HCL 25 MG CAPSULE 50 MG PO (08:45)
[2024-03-28] MEDS: Divalproex Sodium 500 MG TABLET.DR PO ×2 (08:45→14:27)
[2024-03-28] MEDS: Nicotine 21 MG PATCH.TD24 TRANSDERMA (08:47)
--- NOTE | 2024-03-28 10:53 | P.PNPSI_ITS ---
Subjective Subjective Date of Service: 03/28/24 Reason For Visit: Psychotic/manic Subjective Notes: Section 7 Healthcare Proxy: No Guardianship: No Medical Problems Affecting Mental Status: No Interim History: Court is continued to 04/11/24. Pt is accepting medications. He did speak with his city attorney and he reports the automatic print developer told him he could leave. He had periods of intermittent agitation when told we were continuing until 04/11/24. Team discussed with family shelter planning. Pt, due to his behavior and sx, will not be able to return to sister's home. Family believes it will be in his best interest to return to [place], where they report he has NO criminal or gang involvement (situations he has spoken of are part of his symptom presentation). Pt does have a home in [place] with his mother, does not have a home in [place], and would return to a safe community in [place]. Will discuss with pt if he wants to return. Medication Compliance: Yes Side effects from medications: No Attending Groups: No Review of Systems Acute medical concerns: No Medical Review of Systems: unchanged Review of Systems Review of Systems Yes all other systems are reviewed and are negative Mental Status Exam Mental Status Exam Patient Appearance: Appropriate Patient Orientation: Person and Place Level of Consciousness: Awake, Restless and Alert Patient Behavior: Talkative, Suspicious, Restless, Anxious, Distractible and Good Eye Contact Mood Description: Labile Affect Description: Labile Patient Cognition Impaired: No Ability to Follow Directions: Fair Speech Pattern: Perseverating and Spontaneous Speech Memory Description: Remote Impaired and Episodic Impaired Hallucinations: None Delusions: Paranoid Ideation, Grandiose and Present Thought Process: Illogical and Distracted Thought Content: positive for [place], positive for Circumstantial, positive for Preoccupation and positive for Suicidal Ideation (denies) Abnormal Motor Activity Signs and Symptoms: Agitation and Restlessness Judgement: Fair Diagnostics Vital Signs (24Hr): Vital Signs - 24 hr 03/27/24 20:00 03/28/24 08:00 Temperature 98.2 F 97.6 F Pulse Rate 119 H 92 Respiratory Rate 19 Blood Pressure 156/83 H 128/84 Pulse Oximetry 98 98 Oxygen Delivery Method Room Air Room Air BMI result Body Mass Index 33.4 Labs 03/27/24 08:03 03/27/24 08:03 Labs: Laboratory Results - last 48 hr 03/27/24 08:03 WBC 5.0 RBC 4.84 Hgb 15.0 Hct 44.7 MCV 92.4 MCH 31.0 MCHC 33.6 RDW 12.6 Plt Count 174 MPV 10.4 Immature Gran % (Auto) 0.6 H Neut % (Auto) 54.1 Lymph % (Auto) 23.9 [place] % (Auto) 10.1 Eos % (Auto) 10.5 H Baso % (Auto) 0.8 Lymph # (Auto) 1.2 [place] # (Auto) 0.5 Eos # (Auto) 0.5 H Baso # (Auto) 0.0 Abs Immat Gran (auto) 0.03 Absolute Neuts (auto) 2.7 Absolute Nucleated RBC 0.000 Nucleated RBC % (auto) 0.0 Sodium 141 Potassium 4.1 Chloride 103 Carbon Dioxide 28 Anion Gap 14 BUN 8 L Creatinine 0.89 Estim Creat Clear Calc 136.3 Estimated GFR > 60 Random Glucose 102 Calcium 9.5 Total Bilirubin 0.3 AST 26 ALT 40 Alkaline Phosphatase 61 Total Protein 6.9 Albumin 3.9 Valproic Acid 72.0 Medications Medications Current Medications Acetaminophen (Acetaminophen 325 Mg Tablet) 650 mg PO Q6H PRN PRN Reason: Headache/Pain Mild Scale (1-3) Last Admin: 03/27/24 22:37 Dose: 650 mg Al Hydroxide/Mg Hydroxide (Magnesium Hydrox/Alum Hydrox 30 Ml Oral.Susp) 30 ml PO Q6H PRN PRN Reason: Heartburn/Nausea Diphenhydramine HCl (Diphenhydramine Hcl 25 Mg Capsule) 50 mg PO BID [facility] Last Admin: 03/28/24 08:45 Dose: 50 mg Divalproex Sodium (Divalproex Sodium 500 Mg Tablet.Dr) 500 mg PO TID [facility] Last Admin: 03/28/24 08:45 Dose: 500 mg Haloperidol (Haloperidol 5 Mg Tablet) 10 mg PO TID [facility] Last Admin: 03/28/24 08:45 Dose: 10 mg Lorazepam (Lorazepam 1 Mg Tablet) 1 mg PO TID PRN PRN Reason: anxiety/agitation Last Admin: 03/28/24 09:36 Dose: 1 mg Lorazepam (Lorazepam 1 Mg Tablet) 1 mg PO TID [facility] Last Admin: 03/28/24 08:45 Dose: 1 mg Magnesium Hydroxide (Milk Of Magnesia 30 Ml Oral.Susp) 30 ml PO DAILY PRN PRN Reason: Constipation Nicotine (Nicotine 21 Mg Patch.Td24) 21 mg TRANSDERMA DAILY PRN PRN Reason: smoking cessation Last Admin: 03/28/24 08:47 Dose: 21 mg Nicotine Polacrilex (Nicotine Polacrilex 2 Mg Gum) 4 mg BUCCAL Q2H PRN PRN Reason: Nicotine Cravings Last Admin: 03/27/24 14:55 Dose: 4 mg Olanzapine (Olanzapine Odt 10 Mg Tab.Rapdis) 20 mg TRANSLINGU BEDTIME [facility] Last Admin: 03/27/24 22:38 Dose: 20 mg Omeprazole (Omeprazole 20 Mg Capsule.Dr) 20 mg PO BID@0630,1630 [facility] Last Admin: 03/28/24 08:45 Dose: 20 mg Trazodone HCl (Trazodone Hcl 50 Mg Tablet) 50 mg PO BEDTIME MRX1 PRN PRN Reason: Insomnia Last Admin: 03/27/24 22:40 Dose: 50 mg Allergies Allergies Allergy/AdvReac Type Severity Reaction Status Date / Time No Known Allergies Allergy Verified 03/13/24 20:59 Assessment & Plan Assessment & Plan (1) Schizoaffective disorder, bipolar type: Status: Acute Code(s): F25.0 - Schizoaffective disorder, bipolar type Plan Mr. Knox is a 33 year-old male with hx of schizoaffective disorder who was brought in by police due to trying to enter other people's homes, presenting as paranoid. He came to [facility] from [place] two months ago to receive psychiatric tx. He was staying at his sister's house but was asked to leave when he suggested sexual intercourse to his niece. He presents as very paranoid, thinking sister is killing people and paid 11 million dollars to keep him in the hospital. 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 Pending collateral information. PLAN 03/17 may consider adding haldol scheduled instead of olanzapine. 03/20: Continue current plans and regimen 03/21 start depakote one time loading dose of 1000mg po once, depakote 500mg po BID. He had IM Haldol IM ativan 2mg after pushing peer, which he agreed to receive. unclear if haldol may be more effective for him or to wait on risperidone. 03/22 DC Risperdal, Chlorpromazine Continue Haldol, scheduled and prn as has been more effective in relief for pt. 03/23 EKG Increase Haldol to 10 mg tid Benztropine 1 mg bid 03/24 DC Benztropine Benadryl 50 mg bid (pt finds this more helpful he reports, team concurs) 03/25 DC Pepcid Prilosec 20 mg bid for reports of intermittent GI distress 03/26 Diagnostics- Valproate, CBCD, CHEMP 03/27 same presentation. reviewed medications and labs and valproic acid Therapeutic. It's possible that it will have increasing effect so will leave at current dose for now. Would consider switching to once/day long acting to help w/ adherence. 03/[address] continued to 04/11. Will discuss with pt a potential return to [place] Reason for continued inpatient stay Substantial Risk for: rapid decompensation Time Spent With Patient Time: Total time managing care of this patient today ____ minutes.
[2024-03-28] MEDS: Nicotine Polacrilex 2 MG GUM 4 MG BUCCAL (18:22)
[2024-03-28] MEDS: Acetaminophen 325 MG TABLET 650 MG PO (19:14)
[2024-03-28 20:00] VITALS: BP 130/73; PULSE 108; TEMP 36.1; O2SAT 97
--- NOTE | 2024-03-28 21:53 | PC.NURSE ---
Addendum entered by Alyx East RN 03/29/24 03:26: At approximately 1 am, this patient came into the hallway, agitated. Per visual merchandising director, he stated I am [employer] in [place]. My mother has cancer and I need to leave. She [his mother] is going to get hurt. I have rights, and I will eduard this hospital. I'm leaving now. He was redirected with some effort and accepted PRN Trazodone and Lorazepam to good effect. He returned to bed after a snack. Original Note: When woken for medications and assessment, patient stated I'm not even asleep, Do you leave me alone? When this residential mortgage underwriter inquired if he wanted his medications, patient stated No and rolled back over so that his back faced this residential mortgage underwriter.
[2024-03-29] MEDS: traZODone HCL 50 MG TABLET PO ×2 (01:23→20:16)
[2024-03-29] MEDS: LORazepam 1 MG TABLET PO ×5 (01:23→20:16)
[2024-03-29] MEDS: Omeprazole 20 MG CAPSULE.DR PO (06:50)
[2024-03-29] MEDS: Nicotine 21 MG PATCH.TD24 TRANSDERMA (06:50)
[2024-03-29] MEDS: diphenhydrAMINE HCL 25 MG CAPSULE 50 MG PO ×2 (08:42→20:16)
[2024-03-29] MEDS: HaloperidoL 5 MG TABLET 10 MG PO (08:42)
[2024-03-29] MEDS: Divalproex Sodium 500 MG TABLET.DR PO ×3 (08:42→20:16)
[2024-03-29] MEDS: Nicotine Polacrilex 2 MG GUM 4 MG BUCCAL ×2 (08:44→20:19)
[2024-03-29] MEDS: Magnesium Hydrox/Alum Hydrox 30 ML ORAL.SUSP PO (13:02)
[2024-03-29] MEDS: HaloperidoL 5 MG TABLET PO ×2 (14:01→20:17)
[2024-03-29] MEDS: Haloperidol Decanoate 50 MG/ML VIAL 100 MG IM (14:05)
--- NOTE | 2024-03-29 15:33 | P.PNPSI_ITS ---
Subjective Subjective Date of Service: 03/29/24 Reason For Visit: Psychotic/manic Subjective Notes: Section 7 Healthcare Proxy: No Guardianship: No Medical Problems Affecting Mental Status: No Interim History: Met with pt and Tati Valentino RN who interpreted to discuss family suggestion of returning to [place] when he is stable. Discussed [facility] Haldol to help with freedom from needing to take PO medications daily. He is agreeable with both. Haldol Dec 100 mg given, team will call family to talk with them about beginning arrangements to return home. Pt later in the a.m. was crying-stating he would not mind living on the unit, if we could let him go a smoke and do errands for five hours. He reports feeling more comfortable here. During the afternoon he visited with the [facility] therapy dog, Sade, and offered support to a peer who was struggling. No aggression, brief intermittent verbal agitation which is redirectable and ongoing lability with a therapeutic Valproate level. Asking to leave for [place] today-ongoing education provided by the team. Medication Compliance: Yes Side effects from medications: No Attending Groups: No Review of Systems Acute medical concerns: No Medical Review of Systems: unchanged Review of Systems Review of Systems Yes all other systems are reviewed and are negative Mental Status Exam Mental Status Exam Patient Appearance: Appropriate Patient Orientation: Person and Place Level of Consciousness: Awake, Restless and Alert Patient Behavior: Talkative, Suspicious, Restless, Anxious, Distractible and Good Eye Contact Mood Description: Labile Affect Description: Labile Patient Cognition Impaired: No Ability to Follow Directions: Fair Speech Pattern: Perseverating and Spontaneous Speech Memory Description: Remote Impaired and Episodic Impaired Hallucinations: None Delusions: Paranoid Ideation, Grandiose and Present Thought Process: Illogical and Distracted Thought Content: positive for [place], positive for Circumstantial, positive for Preoccupation and positive for Suicidal Ideation (denies) Abnormal Motor Activity Signs and Symptoms: Agitation and Restlessness Judgement: Fair Diagnostics Vital Signs (24Hr): Vital Signs - 24 hr 03/28/24 20:00 Temperature 97.0 F Pulse Rate 108 H Blood Pressure 130/73 Pulse Oximetry 97 Oxygen Delivery Method Room Air BMI result Body Mass Index 33.4 Labs 03/27/24 08:03 03/27/24 08:03 Medications Medications Current Medications Acetaminophen (Acetaminophen 325 Mg Tablet) 650 mg PO Q6H PRN PRN Reason: Headache/Pain Mild Scale (1-3) Last Admin: 03/28/24 19:14 Dose: 650 mg Al Hydroxide/Mg Hydroxide (Magnesium Hydrox/Alum Hydrox 30 Ml Oral.Susp) 30 ml PO Q6H PRN PRN Reason: Heartburn/Nausea Last Admin: 03/29/24 13:02 Dose: 30 ml Diphenhydramine HCl (Diphenhydramine Hcl 25 Mg Capsule) 50 mg PO BID [facility] Last Admin: 03/29/24 08:42 Dose: 50 mg Divalproex Sodium (Divalproex Sodium 500 Mg Tablet.) 500 mg PO TID [facility] Last Admin: 03/29/24 14:01 Dose: 500 mg Haloperidol (Haloperidol 5 Mg Tablet) 5 mg PO TID [facility] Last Admin: 03/29/24 14:01 Dose: 5 mg Haloperidol Decanoate (Haloperidol Decanoate 50 Mg/Ml Vial) 100 mg IM Q28D [facility] Last Admin: 03/29/24 14:05 Dose: 100 mg Lorazepam (Lorazepam 1 Mg Tablet) 1 mg PO TID PRN PRN Reason: anxiety/agitation Last Admin: 03/29/24 06:50 Dose: 1 mg Lorazepam (Lorazepam 1 Mg Tablet) 1 mg PO TID [facility] Last Admin: 03/29/24 14:01 Dose: 1 mg Magnesium Hydroxide (Milk Of Magnesia 30 Ml Oral.Susp) 30 ml PO DAILY PRN PRN Reason: Constipation Nicotine (Nicotine 21 Mg Patch.Td24) 21 mg TRANSDERMA DAILY PRN PRN Reason: smoking cessation Last Admin: 03/29/24 06:50 Dose: 21 mg Nicotine Polacrilex (Nicotine Polacrilex 2 Mg Gum) 4 mg BUCCAL Q2H PRN PRN Reason: Nicotine Cravings Last Admin: 03/29/24 08:44 Dose: 4 mg Olanzapine (Olanzapine Odt 10 Mg Tab.Rapdis) 20 mg TRANSLINGU BEDTIME [facility] Last Admin: 03/28/24 21:58 Dose: Not Given Omeprazole (Omeprazole 20 Mg Capsule.) 20 mg PO BID@0630,1630 [facility] Last Admin: 03/29/24 06:50 Dose: 20 mg Trazodone HCl (Trazodone Hcl 50 Mg Tablet) 50 mg PO BEDTIME MRX1 PRN PRN Reason: Insomnia Last Admin: 03/29/24 01:23 Dose: 50 mg Allergies Allergies Allergy/AdvReac Type Severity Reaction Status Date / Time No Known Allergies Allergy Verified 03/13/24 20:59 Assessment & Plan Assessment & Plan (1) Schizoaffective disorder, bipolar type: Status: Acute Code(s): F25.0 - Schizoaffective disorder, bipolar type Plan Mr. Knox is a 33 year-old male with hx of schizoaffective disorder who was brought in by police due to trying to enter other people's homes, presenting as paranoid. He came to [facility] from [place] two months ago to receive psychiatric tx. He was staying at his sister's house but was asked to leave when he suggested sexual intercourse to his niece. He presents as very paranoid, thinking sister is killing people and paid 11 million dollars to keep him in the hospital. 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 Pending collateral information. PLAN 03/17 may consider adding haldol scheduled instead of olanzapine. 03/20: Continue current plans and regimen 03/21 start depakote one time loading dose of 1000mg po once, depakote 500mg po BID. He had IM Haldol IM ativan 2mg after pushing peer, which he agreed to receive. unclear if haldol may be more effective for him or to wait on risperidone. 03/22 DC Risperdal, Chlorpromazine Continue Haldol, scheduled and prn as has been more effective in relief for pt. 03/23 EKG Increase Haldol to 10 mg tid Benztropine 1 mg bid 03/24 DC Benztropine Benadryl 50 mg bid (pt finds this more helpful he reports, team concurs) 03/25 DC Pepcid Prilosec 20 mg bid for reports of intermittent GI distress 03/26 Diagnostics- Valproate, CBCD, CHEMP 03/27 same presentation. reviewed medications and labs and valproic acid Therapeutic. It's possible that it will have increasing effect so will leave at current dose for now. Would consider switching to once/day long acting to help w/ adherence. 03/29: Haldol Dec 100 mg today Decrease PO scheduled Haldol to 5 mg bid Continue discussion about pt returning to his home in [place]. Reason for continued inpatient stay Substantial Risk for: rapid decompensation Time Spent With Patient Time: Total time managing care of this patient today ____ minutes.
[2024-03-29 20:00] VITALS: BP 136/89; PULSE 105; RESP 16; TEMP 37.2; O2SAT 96
[2024-03-29] MEDS: OLANZapine ODT 10 MG TAB.RAPDIS 20 MG TRANSLINGU (20:17)
[2024-03-30 08:07] VITALS: BP 140/91; PULSE 83; TEMP 36.9; O2SAT 94
[2024-03-30] MEDS: LORazepam 1 MG TABLET PO ×5 (09:23→22:19)
[2024-03-30] MEDS: Omeprazole 20 MG CAPSULE.DR PO ×3 (09:23→15:48)
[2024-03-30] MEDS: Divalproex Sodium 500 MG TABLET.DR PO ×3 (09:23→22:19)
[2024-03-30] MEDS: HaloperidoL 5 MG TABLET PO ×3 (09:23→22:18)
[2024-03-30] MEDS: diphenhydrAMINE HCL 25 MG CAPSULE 50 MG PO ×2 (09:23→22:19)
[2024-03-30 11:35] VITALS: BMI 35.1
[2024-03-30] MEDS: Nicotine 21 MG PATCH.TD24 TRANSDERMA (12:12)
[2024-03-30] MEDS: Nicotine Polacrilex 2 MG GUM 4 MG BUCCAL ×2 (12:14→22:24)
--- NOTE | 2024-03-30 18:45 | HO.PSYCHPN ---
Subjective Subjective Date of Service: 03/30/24 Reason For Visit: Psychotic/manic Subjective Notes: Section 7 Healthcare Proxy: No Guardianship: No Medical Problems Affecting Mental Status: No Interim History: Visable, interactive, improved control of mood and behavior. Consistent in asking when he will return to [place]. Appropriate in peer interactions. Tolerating Haldol injection given this week. Family is making arrangements. Mother to accompany pt. Medication Compliance: Yes Side effects from medications: No Attending Groups: No Review of Systems Acute medical concerns: No Review of Systems Review of Systems Yes all other systems are reviewed and are negative Mental Status Exam Mental Status Exam Patient Appearance: Appropriate Patient Orientation: Person and Place Level of Consciousness: Awake, Restless and Alert Patient Behavior: Talkative, Suspicious, Restless, Anxious, Distractible and Good Eye Contact Mood Description: Labile Affect Description: Labile Patient Cognition Impaired: No Ability to Follow Directions: Fair Speech Pattern: Perseverating and Spontaneous Speech Memory Description: Remote Impaired and Episodic Impaired Hallucinations: None Delusions: Paranoid Ideation, Grandiose and Present Thought Process: Illogical and Distracted Thought Content: positive for Edwards, positive for Circumstantial, positive for Preoccupation and positive for Suicidal Ideation (denies) Abnormal Motor Activity Signs and Symptoms: Agitation and Restlessness Judgement: Fair Diagnostics Vital Signs (24Hr): Vital Signs - 24 hr 03/29/24 20:00 03/30/24 08:07 Temperature 98.9 F 98.4 F Pulse Rate 105 H 83 Respiratory Rate 16 Blood Pressure 136/89 140/91 H Pulse Oximetry 96 94 Oxygen Delivery Method Room Air Room Air BMI result Body Mass Index 35.1 Labs 03/27/24 08:03 03/27/24 08:03 Medications Medications Current Medications Acetaminophen (Acetaminophen 325 Mg Tablet) 650 mg PO Q6H PRN PRN Reason: Headache/Pain Mild Scale (1-3) Last Admin: 03/28/24 19:14 Dose: 650 mg Al Hydroxide/Mg Hydroxide (Magnesium Hydrox/Alum Hydrox 30 Ml Oral.Susp) 30 ml PO Q6H PRN PRN Reason: Heartburn/Nausea Last Admin: 03/29/24 13:02 Dose: 30 ml Diphenhydramine HCl (Diphenhydramine Hcl 25 Mg Capsule) 50 mg PO BID [facility]EINA Last Admin: 03/30/24 09:23 Dose: 50 mg Divalproex Sodium (Divalproex Sodium 500 Mg Tablet.) 500 mg PO TID [facility] Last Admin: 03/30/24 15:48 Dose: 500 mg Haloperidol (Haloperidol 5 Mg Tablet) 5 mg PO TID [facility] Last Admin: 03/30/24 15:48 Dose: 5 mg Haloperidol Decanoate (Haloperidol Decanoate 50 Mg/Ml Vial) 100 mg IM Q28D [facility] Last Admin: 03/29/24 14:05 Dose: 100 mg Lorazepam (Lorazepam 1 Mg Tablet) 1 mg PO TID PRN PRN Reason: anxiety/agitation Last Admin: 03/30/24 13:10 Dose: 1 mg Lorazepam (Lorazepam 1 Mg Tablet) 1 mg PO TID [facility] Last Admin: 03/30/24 15:48 Dose: 1 mg Magnesium Hydroxide (Milk Of Magnesia 30 Ml Oral.Susp) 30 ml PO DAILY PRN PRN Reason: Constipation Nicotine (Nicotine 21 Mg Patch.Td24) 21 mg TRANSDERMA DAILY PRN PRN Reason: smoking cessation Last Admin: 03/30/24 12:12 Dose: 21 mg Nicotine Polacrilex (Nicotine Polacrilex 2 Mg Gum) 4 mg BUCCAL Q2H PRN PRN Reason: Nicotine Cravings Last Admin: 03/30/24 12:14 Dose: 4 mg Olanzapine (Olanzapine Odt 10 Mg Tab.Rapdis) 20 mg TRANSLINGU BEDTIME [facility] Last Admin: 03/29/24 20:17 Dose: 20 mg Omeprazole (Omeprazole 20 Mg Capsule.) 20 mg PO BID@0630,1630 [facility] Last Admin: 03/30/24 15:48 Dose: 20 mg Trazodone HCl (Trazodone Hcl 50 Mg Tablet) 50 mg PO BEDTIME MRX1 PRN PRN Reason: Insomnia Last Admin: 03/29/24 20:16 Dose: 50 mg Allergies Allergies Allergy/AdvReac Type Severity Reaction Status Date / Time No Known Allergies Allergy Verified 03/13/24 20:59 Assessment & Plan Assessment & Plan (1) Schizoaffective disorder, bipolar type: Status: Acute Code(s): F25.0 - Schizoaffective disorder, bipolar type Plan Mr. Knox is a 33 year-old male with hx of schizoaffective disorder who was brought in by police due to trying to enter other people's homes, presenting as paranoid. He came to [facility] from [place] two months ago to receive psychiatric tx. He was staying at his sister's house but was asked to leave when he suggested sexual intercourse to his niece. He presents as very paranoid, thinking sister is killing people and paid 11 million dollars to keep him in the hospital. 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 Pending collateral information. PLAN 03/17 may consider adding haldol scheduled instead of olanzapine. 03/20: Continue current plans and regimen 03/21 start depakote one time loading dose of 1000mg po once, depakote 500mg po BID. He had IM Haldol IM ativan 2mg after pushing peer, which he agreed to receive. unclear if haldol may be more effective for him or to wait on risperidone. 03/22 DC Risperdal, Chlorpromazine Continue Haldol, scheduled and prn as has been more effective in relief for pt. 03/23 EKG Increase Haldol to 10 mg tid Benztropine 1 mg bid 03/24 DC Benztropine Benadryl 50 mg bid (pt finds this more helpful he reports, team concurs) 03/25 DC Pepcid Prilosec 20 mg bid for reports of intermittent GI distress 03/26 Diagnostics- Valproate, CBCD, CHEMP 03/27 same presentation. reviewed medications and labs and valproic acid Therapeutic. It's possible that it will have increasing effect so will leave at current dose for now. Would consider switching to once/day long acting to help w/ adherence. 03/29: Haldol Dec 100 mg today Decrease PO scheduled Haldol to 5 mg bid Continue discussion about pt returning to his home in [place]. 03/30: Continue tx. Reason for continued inpatient stay Substantial Risk for: rapid decompensation Time Spent With Patient Time: Total time managing care of this patient today ____ minutes.
[2024-03-30 20:00] VITALS: BP 150/96; PULSE 101; RESP 16; TEMP 36.5; O2SAT 99
[2024-03-30] MEDS: OLANZapine ODT 10 MG TAB.RAPDIS 20 MG TRANSLINGU (22:18)
[2024-03-30] MEDS: traZODone HCL 50 MG TABLET PO (22:19)
[2024-03-30] MEDS: Milk of Magnesia 30 ML ORAL.SUSP PO (22:32)
[2024-03-31 08:00] VITALS: BP 133/77; PULSE 103; RESP 16; TEMP 36.6; O2SAT 99
--- NOTE | 2024-03-31 10:05 | HO.PSYCHPN ---
Subjective Subjective Date of Service: 03/31/24 Reason For Visit: Psychotic/manic Subjective Notes: Section 7 Healthcare Proxy: No Guardianship: No Medical Problems Affecting Mental Status: No Interim History: Continues to ask for discharge today. Asking to go out on [place] to use his phone. Experiences intermittent episodic periods of sadness, crying with team. These are brief and relieved with team support and rest. Mood is less labile, pt seems to be more easily redirectable. We have heard no word from family on arrangements for pt to go to [place] today. Will complete labs on 04/03. Medication Compliance: Yes Side effects from medications: No Attending Groups: No Review of Systems Acute medical concerns: No Medical Review of Systems: unchanged Review of Systems Review of Systems Yes all other systems are reviewed and are negative Mental Status Exam Mental Status Exam Patient Appearance: Appropriate Patient Orientation: Person, Place and Situation Level of Consciousness: Awake, Restless and Alert Patient Behavior: Talkative, Restless, Distractible and Good Eye Contact Mood Description: Labile Affect Description: Labile Patient Cognition Impaired: No Ability to Follow Directions: Fair Speech Pattern: Perseverating and Spontaneous Speech Memory Description: Remote Impaired and Episodic Impaired Hallucinations: None Delusions: Grandiose and Present Thought Content: positive for Circumstantial, positive for Preoccupation and positive for Suicidal Ideation (denies) Abnormal Motor Activity Signs and Symptoms: Agitation and Restlessness Judgement: Fair Diagnostics Vital Signs (24Hr): Vital Signs - 24 hr 03/30/24 20:00 Temperature 97.7 F Pulse Rate 101 H Respiratory Rate 16 Blood Pressure 150/96 H Pulse Oximetry 99 Oxygen Delivery Method Room Air BMI result Body Mass Index 35.1 Labs 03/27/24 08:03 03/27/24 08:03 Medications Medications Current Medications Acetaminophen (Acetaminophen 325 Mg Tablet) 650 mg PO Q6H PRN PRN Reason: Headache/Pain Mild Scale (1-3) Last Admin: 03/28/24 19:14 Dose: 650 mg Al Hydroxide/Mg Hydroxide (Magnesium Hydrox/Alum Hydrox 30 Ml Oral.Susp) 30 ml PO Q6H PRN PRN Reason: Heartburn/Nausea Last Admin: 03/29/24 13:02 Dose: 30 ml Diphenhydramine HCl (Diphenhydramine Hcl 25 Mg Capsule) 50 mg PO BID [facility] Last Admin: 03/30/24 22:19 Dose: 50 mg Divalproex Sodium (Divalproex Sodium 500 Mg Tablet.) 500 mg PO TID [facility] Last Admin: 03/30/24 22:19 Dose: 500 mg Haloperidol (Haloperidol 5 Mg Tablet) 5 mg PO TID [facility] Last Admin: 03/30/24 22:18 Dose: 5 mg Haloperidol Decanoate (Haloperidol Decanoate 50 Mg/Ml Vial) 100 mg IM Q28D [facility] Last Admin: 03/29/24 14:05 Dose: 100 mg Lorazepam (Lorazepam 1 Mg Tablet) 1 mg PO TID PRN PRN Reason: anxiety/agitation Last Admin: 03/30/24 13:10 Dose: 1 mg Lorazepam (Lorazepam 1 Mg Tablet) 1 mg PO TID [facility] Last Admin: 03/30/24 22:19 Dose: 1 mg Magnesium Hydroxide (Milk Of Magnesia 30 Ml Oral.Susp) 30 ml PO DAILY PRN PRN Reason: Constipation Last Admin: 03/30/24 22:32 Dose: 30 ml Nicotine (Nicotine 21 Mg Patch.Td24) 21 mg TRANSDERMA DAILY PRN PRN Reason: smoking cessation Last Admin: 03/30/24 12:12 Dose: 21 mg Nicotine Polacrilex (Nicotine Polacrilex 2 Mg Gum) 4 mg BUCCAL Q2H PRN PRN Reason: Nicotine Cravings Last Admin: 03/30/24 22:24 Dose: 4 mg Olanzapine (Olanzapine Odt 10 Mg Tab.Rapdis) 20 mg TRANSLINGU BEDTIME [facility] Last Admin: 03/30/24 22:18 Dose: 20 mg Omeprazole (Omeprazole 20 Mg Capsule.) 20 mg PO BID@0630,1630 [facility] Last Admin: 03/30/24 15:48 Dose: 20 mg Trazodone HCl (Trazodone Hcl 50 Mg Tablet) 50 mg PO BEDTIME MRX1 PRN PRN Reason: Insomnia Last Admin: 03/30/24 22:19 Dose: 50 mg Allergies Allergies Allergy/AdvReac Type Severity Reaction Status Date / Time No Known Allergies Allergy Verified 03/13/24 20:59 Assessment & Plan Assessment & Plan (1) Schizoaffective disorder, bipolar type: Status: Acute Code(s): F25.0 - Schizoaffective disorder, bipolar type Plan Mr. Knox is a 33 year-old male with hx of schizoaffective disorder who was brought in by police due to trying to enter other people's homes, presenting as paranoid. He came to [facility] from [place] two months ago to receive psychiatric tx. He was staying at his sister's house but was asked to leave when he suggested sexual intercourse to his niece. He presents as very paranoid, thinking sister is killing people and paid 11 million dollars to keep him in the hospital. 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 Pending collateral information. PLAN 03/17 may consider adding haldol scheduled instead of olanzapine. 03/20: Continue current plans and regimen 03/21 start depakote one time loading dose of 1000mg po once, depakote 500mg po BID. He had IM Haldol IM ativan 2mg after pushing peer, which he agreed to receive. unclear if haldol may be more effective for him or to wait on risperidone. 03/22 DC Risperdal, Chlorpromazine Continue Haldol, scheduled and prn as has been more effective in relief for pt. 03/23 EKG Increase Haldol to 10 mg tid Benztropine 1 mg bid 03/24 DC Benztropine Benadryl 50 mg bid (pt finds this more helpful he reports, team concurs) 03/25 DC Pepcid Prilosec 20 mg bid for reports of intermittent GI distress 03/26 Diagnostics- Valproate, CBCD, CHEMP 03/27 same presentation. reviewed medications and labs and valproic acid Therapeutic. It's possible that it will have increasing effect so will leave at current dose for now. Would consider switching to once/day long acting to help w/ adherence. 03/29: Haldol Dec 100 mg today Decrease PO scheduled Haldol to 5 mg bid Continue discussion about pt returning to his home in [place]. 03/31: Continue tx. Labs on 04/03 Reason for continued inpatient stay Substantial Risk for: rapid decompensation Time Spent With Patient Time: Total time managing care of this patient today ____ minutes.
[2024-03-31] MEDS: diphenhydrAMINE HCL 25 MG CAPSULE 50 MG PO ×2 (11:38→22:48)
[2024-03-31] MEDS: Omeprazole 20 MG CAPSULE.DR PO (11:39)
[2024-03-31] MEDS: HaloperidoL 5 MG TABLET PO ×3 (11:39→22:48)
[2024-03-31] MEDS: LORazepam 1 MG TABLET PO ×3 (11:39→22:52)
[2024-03-31] MEDS: Divalproex Sodium 500 MG TABLET.DR PO ×3 (11:39→22:48)
[2024-03-31 20:00] VITALS: BP 132/67; PULSE 101; RESP 14; TEMP 36.9; O2SAT 96
[2024-03-31] MEDS: OLANZapine ODT 10 MG TAB.RAPDIS 20 MG TRANSLINGU (22:48)
[2024-04-01] MEDS: Omeprazole 20 MG CAPSULE.DR PO ×2 (07:25→17:05)
[2024-04-01 08:33] VITALS: BP 134/76; PULSE 82; RESP 16; TEMP 36.6; O2SAT 97
[2024-04-01] MEDS: LORazepam 1 MG TABLET PO ×3 (11:00→21:48)
[2024-04-01] MEDS: HaloperidoL 5 MG TABLET PO ×3 (11:00→21:48)
[2024-04-01] MEDS: Divalproex Sodium 500 MG TABLET.DR PO ×3 (11:00→21:48)
[2024-04-01] MEDS: diphenhydrAMINE HCL 25 MG CAPSULE 50 MG PO ×2 (11:00→21:48)
[2024-04-01] MEDS: Nicotine Polacrilex 2 MG GUM 4 MG BUCCAL (11:00)
--- NOTE | 2024-04-01 11:04 | HO.PSYCHPN ---
Subjective Subjective Date of Service: 04/01/24 Reason For Visit: Psychotic/manic Interim History: Continues to ask for discharge today. 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 Mood is less labile per team. Adherent to medications. Review of Systems Review of Systems as noted in HPI Yes all other systems are reviewed and are negative and Unobtainable due to mental status Mental Status Exam Mental Status Exam Narrative: In today's visit he appears calmer. He is interactive with in his means. Appears to be responding to internal stimuli. No suicidal ideations expressed. No SI. Cognitively could not be assessed. Judgment is impaired. Patient Appearance: Appropriate Patient Orientation: Person, Place and Situation Level of Consciousness: Awake, Restless and Alert Patient Behavior: Talkative, Restless, Distractible and Good Eye Contact Mood Description: Labile Affect Description: Labile Patient Cognition Impaired: No Ability to Follow Directions: Fair Speech Pattern: Perseverating and Spontaneous Speech Memory Description: Remote Impaired and Episodic Impaired Diagnostics Vital Signs (24Hr): Vital Signs - 24 hr 03/31/24 20:00 04/01/24 08:33 Temperature 98.4 F 97.8 F Pulse Rate 101 H 82 Respiratory Rate 14 16 Blood Pressure 132/67 134/76 Pulse Oximetry 96 97 Oxygen Delivery Method Room Air BMI result Body Mass Index 35.1 Labs 03/27/24 08:03 03/27/24 08:03 Medications Medications Current Medications Acetaminophen (Acetaminophen 325 Mg Tablet) 650 mg PO Q6H PRN PRN Reason: Headache/Pain Mild Scale (1-3) Last Admin: 03/28/24 19:14 Dose: 650 mg Al Hydroxide/Mg Hydroxide (Magnesium Hydrox/Alum Hydrox 30 Ml Oral.Susp) 30 ml PO Q6H PRN PRN Reason: Heartburn/Nausea Last Admin: 03/29/24 13:02 Dose: 30 ml Diphenhydramine HCl (Diphenhydramine Hcl 25 Mg Capsule) 50 mg PO BID [facility] Last Admin: 04/01/24 11:00 Dose: 50 mg Divalproex Sodium (Divalproex Sodium 500 Mg Tablet.) 500 mg PO TID [facility] Last Admin: 04/01/24 11:00 Dose: 500 mg Haloperidol (Haloperidol 5 Mg Tablet) 5 mg PO TID [facility] Last Admin: 04/01/24 11:00 Dose: 5 mg Haloperidol Decanoate (Haloperidol Decanoate 50 Mg/Ml Vial) 100 mg IM Q28D [facility] Last Admin: 03/29/24 14:05 Dose: 100 mg Lorazepam (Lorazepam 1 Mg Tablet) 1 mg PO TID PRN PRN Reason: anxiety/agitation Last Admin: 03/30/24 13:10 Dose: 1 mg Lorazepam (Lorazepam 1 Mg Tablet) 1 mg PO TID [facility] Last Admin: 04/01/24 11:00 Dose: 1 mg Magnesium Hydroxide (Milk Of Magnesia 30 Ml Oral.Susp) 30 ml PO DAILY PRN PRN Reason: Constipation Last Admin: 03/30/24 22:32 Dose: 30 ml Nicotine (Nicotine 21 Mg Patch.Td24) 21 mg TRANSDERMA DAILY PRN PRN Reason: smoking cessation Last Admin: 03/30/24 12:12 Dose: 21 mg Nicotine Polacrilex (Nicotine Polacrilex 2 Mg Gum) 4 mg BUCCAL Q2H PRN PRN Reason: Nicotine Cravings Last Admin: 04/01/24 11:00 Dose: 4 mg Olanzapine (Olanzapine Odt 10 Mg Tab.Rapdis) 20 mg TRANSLINGU BEDTIME [facility] Last Admin: 03/31/24 22:48 Dose: 20 mg Omeprazole (Omeprazole 20 Mg Capsule.Dr) 20 mg PO BID@0630,1630 [facility] Last Admin: 04/01/24 07:25 Dose: 20 mg Trazodone HCl (Trazodone Hcl 50 Mg Tablet) 50 mg PO BEDTIME MRX1 PRN PRN Reason: Insomnia Last Admin: 03/30/24 22:19 Dose: 50 mg Allergies Allergies Allergy/AdvReac Type Severity Reaction Status Date / Time No Known Allergies Allergy Verified 03/13/24 20:59 Assessment & Plan Assessment & Plan (1) Schizoaffective disorder, bipolar type: Status: Acute Code(s): F25.0 - Schizoaffective disorder, bipolar type Plan Mr. Knox is a 33 year-old male with hx of schizoaffective disorder who was brought in by police due to trying to enter other people's homes, presenting as paranoid. He came to [facility] from [place] two months ago to receive psychiatric tx. He was staying at his sister's house but was asked to leave when he suggested sexual intercourse to his niece. He presents as very paranoid, thinking sister is killing people and paid 11 million dollars to keep him in the hospital. 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 Pending collateral information. PLAN 03/17 may consider adding haldol scheduled instead of olanzapine. 03/20: Continue current plans and regimen 03/21 start depakote one time loading dose of 1000mg po once, depakote 500mg po BID. He had IM Haldol IM ativan 2mg after pushing peer, which he agreed to receive. unclear if haldol may be more effective for him or to wait on risperidone. 03/22 DC Risperdal, Chlorpromazine Continue Haldol, scheduled and prn as has been more effective in relief for pt. 03/23 EKG Increase Haldol to 10 mg tid Benztropine 1 mg bid 03/24 DC Benztropine Benadryl 50 mg bid (pt finds this more helpful he reports, team concurs) 03/25 DC Pepcid Prilosec 20 mg bid for reports of intermittent GI distress 03/26 Diagnostics- Valproate, CBCD, CHEMP 03/27 same presentation. reviewed medications and labs and valproic acid Therapeutic. It's possible that it will have increasing effect so will leave at current dose for now. Would consider switching to once/day long acting to help w/ adherence. 03/29: Haldol Dec 100 mg today Decrease PO scheduled Haldol to 5 mg bid Continue discussion about pt returning to his home in [place]. 03/31: Continue tx. Labs on 04/03 04/01: Continue current management and treatment plan. Reason for continued inpatient stay Substantial Risk for: inability to function and rapid decompensation Time Spent With Patient Time: Total time managing care of this patient today ____ minutes.
[2024-04-01 20:00] VITALS: BP 138/86; PULSE 111; TEMP 36.9; O2SAT 97
[2024-04-01] MEDS: OLANZapine ODT 10 MG TAB.RAPDIS 20 MG TRANSLINGU (21:48)
[2024-04-02] MEDS: Omeprazole 20 MG CAPSULE.DR PO (07:09)
[2024-04-02] MEDS: HaloperidoL 5 MG TABLET PO ×3 (09:02→20:54)
[2024-04-02] MEDS: diphenhydrAMINE HCL 25 MG CAPSULE 50 MG PO ×2 (09:02→20:55)
[2024-04-02] MEDS: LORazepam 1 MG TABLET PO ×3 (09:02→20:54)
[2024-04-02] MEDS: Divalproex Sodium 500 MG TABLET.DR PO ×3 (09:02→20:55)
[2024-04-02 09:04] VITALS: BP 155/94; PULSE 98; RESP 18; TEMP 36.6; O2SAT 97
--- NOTE | 2024-04-02 11:39 | HO.PSYCHPN ---
Subjective Subjective Date of Service: 04/02/24 Reason For Visit: Psychotic/manic Interim History: Seen with [employer] [employer]. Asking about DC. Wants to start working. Says now [place] Says he has some discomfort in his arm where he was given the shot. No swelling or redness on inspection. Mood is less labile per team. No agitated episodes. Adherent to medications. Review of Systems Review of Systems as noted in HPI Yes all other systems are reviewed and are negative and Unobtainable due to mental status Mental Status Exam Mental Status Exam Narrative: In today's visit he appears calmer. He is interactive with in his means. Appears to be responding to internal stimuli. No suicidal ideations expressed. No SI. Cognitively could not be assessed. Judgment is impaired. Patient Appearance: Appropriate Patient Orientation: Person, Place and Situation Level of Consciousness: Awake, Restless and Alert Patient Behavior: Talkative, Restless, Distractible and Good Eye Contact Mood Description: Labile Affect Description: Labile Patient Cognition Impaired: No Ability to Follow Directions: Fair Speech Pattern: Perseverating and Spontaneous Speech Memory Description: Remote Impaired and Episodic Impaired Diagnostics Vital Signs (24Hr): Vital Signs - 24 hr 04/01/24 20:00 04/02/24 09:04 Temperature 98.5 F 97.8 F Pulse Rate 111 H 98 Respiratory Rate 18 Blood Pressure 138/86 155/94 H Pulse Oximetry 97 97 Oxygen Delivery Method Room Air Room Air BMI result Body Mass Index 35.1 Labs 03/27/24 08:03 03/27/24 08:03 Medications Medications Current Medications Acetaminophen (Acetaminophen 325 Mg Tablet) 650 mg PO Q6H PRN PRN Reason: Headache/Pain Mild Scale (1-3) Last Admin: 03/28/24 19:14 Dose: 650 mg Al Hydroxide/Mg Hydroxide (Magnesium Hydrox/Alum Hydrox 30 Ml Oral.Susp) 30 ml PO Q6H PRN PRN Reason: Heartburn/Nausea Last Admin: 03/29/24 13:02 Dose: 30 ml Diphenhydramine HCl (Diphenhydramine Hcl 25 Mg Capsule) 50 mg PO BID [facility] Last Admin: 04/02/24 09:02 Dose: 50 mg Divalproex Sodium (Divalproex Sodium 500 Mg Tablet.) 500 mg PO TID [facility] Last Admin: 04/02/24 09:02 Dose: 500 mg Haloperidol (Haloperidol 5 Mg Tablet) 5 mg PO TID [facility] Last Admin: 04/02/24 09:02 Dose: 5 mg Haloperidol Decanoate (Haloperidol Decanoate 50 Mg/Ml Vial) 100 mg IM Q28D [facility] Last Admin: 03/29/24 14:05 Dose: 100 mg Lorazepam (Lorazepam 1 Mg Tablet) 1 mg PO TID PRN PRN Reason: anxiety/agitation Last Admin: 03/30/24 13:10 Dose: 1 mg Lorazepam (Lorazepam 1 Mg Tablet) 1 mg PO TID [facility] Last Admin: 04/02/24 09:02 Dose: 1 mg Magnesium Hydroxide (Milk Of Magnesia 30 Ml Oral.Susp) 30 ml PO DAILY PRN PRN Reason: Constipation Last Admin: 03/30/24 22:32 Dose: 30 ml Nicotine (Nicotine 21 Mg Patch.Td24) 21 mg TRANSDERMA DAILY PRN PRN Reason: smoking cessation Last Admin: 03/30/24 12:12 Dose: 21 mg Nicotine Polacrilex (Nicotine Polacrilex 2 Mg Gum) 4 mg BUCCAL Q2H PRN PRN Reason: Nicotine Cravings Last Admin: 04/01/24 11:00 Dose: 4 mg Olanzapine (Olanzapine Odt 10 Mg Tab.Rapdis) 20 mg TRANSLINGU BEDTIME [facility] Last Admin: 04/01/24 21:48 Dose: 20 mg Omeprazole (Omeprazole 20 Mg Capsule.Dr) 20 mg PO BID@0630,1630 [facility] Last Admin: 04/02/24 07:09 Dose: 20 mg Trazodone HCl (Trazodone Hcl 50 Mg Tablet) 50 mg PO BEDTIME MRX1 PRN PRN Reason: Insomnia Last Admin: 03/30/24 22:19 Dose: 50 mg Allergies Allergies Allergy/AdvReac Type Severity Reaction Status Date / Time No Known Allergies Allergy Verified 03/13/24 20:59 Assessment & Plan Assessment & Plan (1) Schizoaffective disorder, bipolar type: Status: Acute Code(s): F25.0 - Schizoaffective disorder, bipolar type Plan Mr. Knox is a 33 year-old male with hx of schizoaffective disorder who was brought in by police due to trying to enter other people's homes, presenting as paranoid. He came to [place] two [place] ago to receive psychiatric tx. He was staying at his sister's house but was asked to leave when he suggested sexual intercourse to his niece. He presents as very paranoid, thinking sister is killing people and paid 11 million dollars to keep him in the hospital. 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 Pending collateral information. PLAN 03/17 may consider adding haldol scheduled instead of olanzapine. 03/20: Continue current plans and regimen 03/21 start depakote one time loading dose of 1000mg po once, depakote 500mg po BID. He had IM Haldol IM ativan 2mg after pushing peer, which he agreed to receive. unclear if haldol may be more effective for him or to wait on risperidone. 03/22 DC Risperdal, Chlorpromazine Continue Haldol, scheduled and prn as has been more effective in relief for pt. 03/23 EKG Increase Haldol to 10 mg tid Benztropine 1 mg bid 03/24 DC Benztropine Benadryl 50 mg bid (pt finds this more helpful he reports, team concurs) 03/25 DC Pepcid Prilosec 20 mg bid for reports of intermittent GI distress 03/26 Diagnostics- Valproate, CBCD, CHEMP 03/27 same presentation. reviewed medications and labs and valproic acid Therapeutic. It's possible that it will have increasing effect so will leave at current dose for now. Would consider switching to once/day long acting to help w/ adherence. 03/29: Haldol Dec 100 mg today Decrease PO scheduled Haldol to 5 mg bid Continue discussion about pt returning to his home in [place]. 03/31: Continue tx. Labs on 04/03 04/01: Continue current management and treatment plan. 04/02: Continue current management and treatment plan. Reason for continued inpatient stay Substantial Risk for: inability to function and rapid decompensation Time Spent With Patient Time: Total time managing care of this patient today ____ minutes.
[2024-04-02] MEDS: Nicotine Polacrilex 2 MG GUM 4 MG BUCCAL (15:40)
[2024-04-02] MEDS: Nicotine 21 MG PATCH.TD24 TRANSDERMA (15:40)
[2024-04-02 20:00] VITALS: BP 135/78; PULSE 120; RESP 15; TEMP 37.2; O2SAT 99
[2024-04-02] MEDS: Magnesium Hydrox/Alum Hydrox 30 ML ORAL.SUSP PO (20:54)
[2024-04-02] MEDS: OLANZapine ODT 10 MG TAB.RAPDIS 20 MG TRANSLINGU (20:54)
[2024-04-03 08:00] VITALS: BP 133/68; PULSE 88; TEMP 36.5; O2SAT 100
[2024-04-03] MEDS: HaloperidoL 5 MG TABLET PO ×2 (09:36→21:54)
[2024-04-03] MEDS: Divalproex Sodium 500 MG TABLET.DR PO ×3 (09:36→21:57)
[2024-04-03] MEDS: LORazepam 1 MG TABLET PO ×3 (09:36→21:56)
[2024-04-03] MEDS: Omeprazole 20 MG CAPSULE.DR PO ×2 (09:37→16:04)
[2024-04-03] MEDS: diphenhydrAMINE HCL 25 MG CAPSULE 50 MG PO ×2 (09:37→21:42)
--- NOTE | 2024-04-03 09:58 | HO.PSYCHPN ---
Subjective Subjective Date of Service: 04/03/24 Reason For Visit: Psychotic/manic Subjective Notes: Section 7 Healthcare Proxy: No Guardianship: No Medical Problems Affecting Mental Status: No Interim History: Team report a reasonable weekend for Eleazar. He has had no behavioral episodes and is visable in the milieu. He is talking and working with the team on a return to his home in [place]. Checks changed to 15 minutes as his control is much improved. He is eating, taking fluids and appropriate with peers and team. Family is being contacted to assist in planning of his return to [place]. Medication Compliance: Yes Side effects from medications: No Attending Groups: Intermittent Review of Systems Acute medical concerns: No Review of Systems Review of Systems Yes all other systems are reviewed and are negative Mental Status Exam Mental Status Exam Patient Appearance: Appropriate Patient Orientation: Person, Place, Time and Situation Level of Consciousness: Alert Patient Behavior: Appropriate, Talkative, Cooperative, Distractible and Good Eye Contact Mood Description: Appropriate Affect Description: Appropriate Patient Cognition Impaired: No Ability to Follow Directions: Good Speech Pattern: Spontaneous Speech Memory Description: Episodic Impaired Hallucinations: None Delusions: Not Present Thought Process: Distracted (he is undecided at times, i.e. wanting to stay in [place], wanting to return to [place]) Thought Content: positive for [place], positive for [place]um[place] and positive for Goal Oriented Judgement: Fair Diagnostics Vital Signs (24Hr): Vital Signs - 24 hr 04/02/24 20:00 Temperature 99.0 F Pulse Rate 120 H Respiratory Rate 15 Blood Pressure 135/78 Pulse Oximetry 99 BMI result Body Mass Index 35.1 Labs 03/27/24 08:03 03/27/24 08:03 Medications Medications Current Medications Acetaminophen (Acetaminophen 325 Mg Tablet) 650 mg PO Q6H PRN PRN Reason: Headache/Pain Mild Scale (1-3) Last Admin: 03/28/24 19:14 Dose: 650 mg Al Hydroxide/Mg Hydroxide (Magnesium Hydrox/Alum Hydrox 30 Ml Oral.Susp) 30 ml PO Q6H PRN PRN Reason: Heartburn/Nausea Last Admin: 04/02/24 20:54 Dose: 30 ml Diphenhydramine HCl (Diphenhydramine Hcl 25 Mg Capsule) 50 mg PO BID [facility] Last Admin: 04/03/24 09:37 Dose: 50 mg Divalproex Sodium (Divalproex Sodium 500 Mg Tablet.) 500 mg PO TID [facility] Last Admin: 04/03/24 09:36 Dose: 500 mg Haloperidol (Haloperidol 5 Mg Tablet) 5 mg PO BID [facility] Haloperidol Decanoate (Haloperidol Decanoate 50 Mg/Ml Vial) 100 mg IM Q28D [facility] Last Admin: 03/29/24 14:05 Dose: 100 mg Lorazepam (Lorazepam 1 Mg Tablet) 1 mg PO TID PRN PRN Reason: anxiety/agitation Last Admin: 03/30/24 13:10 Dose: 1 mg Lorazepam (Lorazepam 1 Mg Tablet) 1 mg PO TID [facility] Last Admin: 04/03/24 09:36 Dose: 1 mg Magnesium Hydroxide (Milk Of Magnesia 30 Ml Oral.Susp) 30 ml PO DAILY PRN PRN Reason: Constipation Last Admin: 03/30/24 22:32 Dose: 30 ml Nicotine (Nicotine 21 Mg Patch.Td24) 21 mg TRANSDERMA DAILY PRN PRN Reason: smoking cessation Last Admin: 04/02/24 15:40 Dose: 21 mg Nicotine Polacrilex (Nicotine Polacrilex 2 Mg Gum) 4 mg BUCCAL Q2H PRN PRN Reason: Nicotine Cravings Last Admin: 04/02/24 15:40 Dose: 4 mg Olanzapine (Olanzapine Odt 10 Mg Tab.Rapdis) 20 mg TRANSLINGU BEDTIME [facility] Last Admin: 04/02/24 20:54 Dose: 20 mg Omeprazole (Omeprazole 20 Mg Capsule.) 20 mg PO BID@0630,1630 [facility] Last Admin: 04/03/24 09:37 Dose: 20 mg Trazodone HCl (Trazodone Hcl 50 Mg Tablet) 50 mg PO BEDTIME MRX1 PRN PRN Reason: Insomnia Last Admin: 03/30/24 22:19 Dose: 50 mg Allergies Allergies Allergy/AdvReac Type Severity Reaction Status Date / Time No Known Allergies Allergy Verified 03/13/24 20:59 Assessment & Plan Assessment & Plan (1) Schizoaffective disorder, bipolar type: Status: Acute Code(s): F25.0 - Schizoaffective disorder, bipolar type Plan Mr. Knox is a 33 year-old male with hx of schizoaffective disorder who was brought in by police due to trying to enter other people's homes, presenting as paranoid. He came to [place] from [place] two months ago to receive psychiatric tx. He was staying at his sister's house but was asked to leave when he suggested sexual intercourse to his niece. He presents as very paranoid, thinking sister is killing people and paid 11 million dollars to keep him in the hospital. 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 Pending collateral information. PLAN 03/17 may consider adding haldol scheduled instead of olanzapine. 03/20: Continue current plans and regimen 03/21 start depakote one time loading dose of 1000mg po once, depakote 500mg po BID. He had IM Haldol IM ativan 2mg after pushing peer, which he agreed to receive. unclear if haldol may be more effective for him or to wait on risperidone. 03/22 DC Risperdal, Chlorpromazine Continue Haldol, scheduled and prn as has been more effective in relief for pt. 03/23 EKG Increase Haldol to 10 mg tid Benztropine 1 mg bid 03/24 DC Benztropine Benadryl 50 mg bid (pt finds this more helpful he reports, team concurs) 03/25 DC Pepcid Prilosec 20 mg bid for reports of intermittent GI distress 03/26 Diagnostics- Valproate, CBCD, CHEMP 03/27 same presentation. reviewed medications and labs and valproic acid Therapeutic. It's possible that it will have increasing effect so will leave at current dose for now. Would consider switching to once/day long acting to help w/ adherence. 03/29: Haldol Dec 100 mg today Decrease PO scheduled Haldol to 5 mg bid Continue discussion about pt returning to his home in [place]. 03/31: Continue tx. Labs on 04/03 04/01: Continue current management and treatment plan. 04/02: Continue current management and treatment plan. 04/03: Decrease po Haldol to BID Reason for continued inpatient stay Substantial Risk for: rapid decompensation Time Spent With Patient Time: Total time managing care of this patient today ____ minutes.
[2024-04-03 20:00] VITALS: BP 155/77; PULSE 102; RESP 16; TEMP 36.7; O2SAT 98
[2024-04-03] MEDS: OLANZapine ODT 10 MG TAB.RAPDIS 20 MG TRANSLINGU (21:43)
[2024-04-04] MEDS: Omeprazole 20 MG CAPSULE.DR PO ×2 (09:09→17:19)
[2024-04-04] MEDS: diphenhydrAMINE HCL 25 MG CAPSULE 50 MG PO ×2 (09:09→21:37)
[2024-04-04] MEDS: LORazepam 1 MG TABLET PO ×3 (09:09→21:37)
[2024-04-04] MEDS: Divalproex Sodium 500 MG TABLET.DR PO ×3 (09:10→21:37)
[2024-04-04] MEDS: HaloperidoL 5 MG TABLET PO ×2 (09:10→21:37)
--- NOTE | 2024-04-04 16:10 | P.PNPSI_ITS ---
Subjective Subjective Date of Service: 04/04/24 Reason For Visit: Psychotic/manic Subjective Notes: Section 7 Healthcare Proxy: No Guardianship: No Medical Problems Affecting Mental Status: No Interim History: Eleazar is active with team on purchasing his ticket to return to [place] for 04/06/24. He is not ambivalent about wanting to remain in [place], he is certain about a return to his home. Family reports due to sx prior to admit, he will not have a home in [place], so a return to his home is currently his best choice. No behavioral issues, visable with peers, team, watching TV. Mood is appropriate. He is seen reaching out to assist his peers at times today, offering them hope and positive feedback. Medication Compliance: Yes Side effects from medications: No Attending Groups: Intermittent Review of Systems Acute medical concerns: No Review of Systems Review of Systems Yes all other systems are reviewed and are negative Mental Status Exam Mental Status Exam Patient Appearance: Appropriate Patient Orientation: Person, Place, Time and Situation Level of Consciousness: Alert Patient Behavior: Appropriate, Talkative, Cooperative, Distractible and Good Eye Contact Mood Description: Appropriate Affect Description: Appropriate Patient Cognition Impaired: No Ability to Follow Directions: Good Speech Pattern: Spontaneous Speech Memory Description: Episodic Impaired Hallucinations: None Delusions: Not Present Thought Process: Distracted (he is undecided at times, i.e. wanting to stay in [place], wanting to return to [place]) Thought Content: positive for [place], positive for Circumstantial and positive for Goal Oriented Judgement: Fair Diagnostics Vital Signs (24Hr): Vital Signs - 24 hr 04/03/24 20:00 Temperature 98.0 F Pulse Rate 102 H Respiratory Rate 16 Blood Pressure 155/77 H Pulse Oximetry 98 Oxygen Delivery Method Room Air BMI result Body Mass Index 35.1 Labs 03/27/24 08:03 03/27/24 08:03 Labs: Laboratory Results - last 48 hr 04/04/24 09:18 Valproic Acid 64.0 Medications Medications Current Medications Acetaminophen (Acetaminophen 325 Mg Tablet) 650 mg PO Q6H PRN PRN Reason: Headache/Pain Mild Scale (1-3) Last Admin: 03/28/24 19:14 Dose: 650 mg Al Hydroxide/Mg Hydroxide (Magnesium Hydrox/Alum Hydrox 30 Ml Oral.Susp) 30 ml PO Q6H PRN PRN Reason: Heartburn/Nausea Last Admin: 04/02/24 20:54 Dose: 30 ml Diphenhydramine HCl (Diphenhydramine Hcl 25 Mg Capsule) 50 mg PO BID [facility] Last Admin: 04/04/24 09:09 Dose: 50 mg Divalproex Sodium (Divalproex Sodium 500 Mg Tablet.) 500 mg PO TID [facility] Last Admin: 04/04/24 14:53 Dose: 500 mg Haloperidol (Haloperidol 5 Mg Tablet) 5 mg PO BID [facility] Last Admin: 04/04/24 09:10 Dose: 5 mg Haloperidol Decanoate (Haloperidol Decanoate 50 Mg/Ml Vial) 100 mg IM Q28D [facility] Last Admin: 03/29/24 14:05 Dose: 100 mg Lorazepam (Lorazepam 1 Mg Tablet) 1 mg PO TID PRN PRN Reason: anxiety/agitation Last Admin: 03/30/24 13:10 Dose: 1 mg Lorazepam (Lorazepam 1 Mg Tablet) 1 mg PO TID [facility] Last Admin: 04/04/24 14:54 Dose: 1 mg Magnesium Hydroxide (Milk Of Magnesia 30 Ml Oral.Susp) 30 ml PO DAILY PRN PRN Reason: Constipation Last Admin: 03/30/24 22:32 Dose: 30 ml Nicotine (Nicotine 21 Mg Patch.Td24) 21 mg TRANSDERMA DAILY PRN PRN Reason: smoking cessation Last Admin: 04/02/24 15:40 Dose: 21 mg Nicotine Polacrilex (Nicotine Polacrilex 2 Mg Gum) 4 mg BUCCAL Q2H PRN PRN Reason: Nicotine Cravings Last Admin: 04/02/24 15:40 Dose: 4 mg Olanzapine (Olanzapine Odt 10 Mg Tab.Rapdis) 20 mg TRANSLINGU BEDTIME [facility] Last Admin: 04/03/24 21:43 Dose: 20 mg Omeprazole (Omeprazole 20 Mg Capsule.Dr) 20 mg PO BID@0630,1630 [facility] Last Admin: 04/04/24 09:09 Dose: 20 mg Trazodone HCl (Trazodone Hcl 50 Mg Tablet) 50 mg PO BEDTIME MRX1 PRN PRN Reason: Insomnia Last Admin: 03/30/24 22:19 Dose: 50 mg Allergies Allergies Allergy/AdvReac Type Severity Reaction Status Date / Time No Known Allergies Allergy Verified 03/13/24 20:59 Assessment & Plan Assessment & Plan (1) Schizoaffective disorder, bipolar type: Status: Acute Code(s): F25.0 - Schizoaffective disorder, bipolar type Plan Mr. Knox is a 33 year-old male with hx of schizoaffective disorder who was brought in by police due to trying to enter other people's homes, presenting as paranoid. He came to [facility] from [place] two months ago to receive psychiatric tx. He was staying at his sister's house but was asked to leave when he suggested sexual intercourse to his niece. He presents as very paranoid, thinking sister is killing people and paid 11 million dollars to keep him in the hospital. 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 Pending collateral information. PLAN 03/17 may consider adding haldol scheduled instead of olanzapine. 03/20: Continue current plans and regimen 03/21 start depakote one time loading dose of 1000mg po once, depakote 500mg po BID. He had IM Haldol IM ativan 2mg after pushing peer, which he agreed to receive. unclear if haldol may be more effective for him or to wait on risperidone. 03/22 DC Risperdal, Chlorpromazine Continue Haldol, scheduled and prn as has been more effective in relief for pt. 03/23 EKG Increase Haldol to 10 mg tid Benztropine 1 mg bid 03/24 DC Benztropine Benadryl 50 mg bid (pt finds this more helpful he reports, team concurs) 03/25 DC Pepcid Prilosec 20 mg bid for reports of intermittent GI distress 03/26 Diagnostics- Valproate, CBCD, CHEMP 03/27 same presentation. reviewed medications and labs and valproic acid Therapeutic. It's possible that it will have increasing effect so will leave at current dose for now. Would consider switching to once/day long acting to help w/ adherence. 03/29: Haldol Dec 100 mg today Decrease PO scheduled Haldol to 5 mg bid Continue discussion about pt returning to his home in [place]. 03/31: Continue tx. Labs on 04/03 04/01: Continue current management and treatment plan. 04/02: Continue current management and treatment plan. 04/04: Continue plan of care. Reason for continued inpatient stay Substantial Risk for: stable for discharge Time Spent With Patient Time: Total time managing care of this patient today ____ minutes.
[2024-04-04 20:00] VITALS: BP 134/78; PULSE 110; RESP 16; TEMP 36.4; O2SAT 99
[2024-04-04] MEDS: OLANZapine ODT 10 MG TAB.RAPDIS 20 MG TRANSLINGU (21:37)
[2024-04-05] MEDS: Omeprazole 20 MG CAPSULE.DR PO ×2 (09:25→16:08)
[2024-04-05] MEDS: Divalproex Sodium 500 MG TABLET.DR PO ×3 (09:26→20:03)
[2024-04-05] MEDS: HaloperidoL 5 MG TABLET PO ×2 (09:26→20:03)
[2024-04-05] MEDS: LORazepam 1 MG TABLET PO ×3 (09:26→20:02)
[2024-04-05] MEDS: diphenhydrAMINE HCL 25 MG CAPSULE 50 MG PO ×2 (09:26→20:02)
[2024-04-05 10:07] VITALS: BP 144/89; PULSE 104; RESP 18; TEMP 36.9; O2SAT 98
[2024-04-05] MEDS: Nicotine 21 MG PATCH.TD24 TRANSDERMA (16:07)
[2024-04-05] MEDS: Nicotine Polacrilex 2 MG GUM 4 MG BUCCAL (16:08)
--- NOTE | 2024-04-05 16:54 | HO.PSYCHPN ---
Subjective Subjective Date of Service: 04/05/24 Reason For Visit: Psychotic/manic Subjective Notes: Section 7 Healthcare Proxy: No Guardianship: No Medical Problems Affecting Mental Status: No Interim History: Pt denies SI/HI/AH/VH Pleased about discharge plan Compliant with medications Visable in milieu, with team and peers. Slept nine hours. Medication Compliance: Yes Side effects from medications: No Attending Groups: Intermittent Review of Systems Acute medical concerns: No Review of Systems Review of Systems Yes all other systems are reviewed and are negative Mental Status Exam Mental Status Exam Patient Appearance: Appropriate Patient Orientation: Person, Place, Time and Situation Level of Consciousness: Alert Patient Behavior: Appropriate, Talkative, Cooperative, Distractible and Good Eye Contact Mood Description: Appropriate Affect Description: Appropriate Patient Cognition Impaired: No Ability to Follow Directions: Good Speech Pattern: Spontaneous Speech Memory Description: Episodic Impaired Hallucinations: None Delusions: Not Present Thought Content: positive for [place], positive for Circum[place] and positive for Goal Oriented Judgement: Good Diagnostics Vital Signs (24Hr): Vital Signs - 24 hr 04/04/24 20:00 04/05/24 10:07 Temperature 97.5 F 98.5 F Pulse Rate 110 H 104 H Respiratory Rate 16 18 Blood Pressure 134/78 144/89 H Pulse Oximetry 99 98 Oxygen Delivery Method Room Air Room Air BMI result Body Mass Index 35.1 Labs 03/27/24 08:03 03/27/24 08:03 Labs: Laboratory Results - last 48 hr 04/04/24 09:18 Valproic Acid 64.0 Medications Medications Current Medications Acetaminophen (Acetaminophen 325 Mg Tablet) 650 mg PO Q6H PRN PRN Reason: Headache/Pain Mild Scale (1-3) Last Admin: 03/28/24 19:14 Dose: 650 mg Al Hydroxide/Mg Hydroxide (Magnesium Hydrox/Alum Hydrox 30 Ml Oral.Susp) 30 ml PO Q6H PRN PRN Reason: Heartburn/Nausea Last Admin: 04/02/24 20:54 Dose: 30 ml Diphenhydramine HCl (Diphenhydramine Hcl 25 Mg Capsule) 50 mg PO BID [facility] Last Admin: 04/05/24 09:26 Dose: 50 mg Divalproex Sodium (Divalproex Sodium 500 Mg Tablet.Dr) 500 mg PO TID [facility] Last Admin: 04/05/24 14:04 Dose: 500 mg Haloperidol (Haloperidol 5 Mg Tablet) 5 mg PO BID [facility] Last Admin: 04/05/24 09:26 Dose: 5 mg Haloperidol Decanoate (Haloperidol Decanoate 50 Mg/Ml Vial) 100 mg IM Q28D [facility] Last Admin: 03/29/24 14:05 Dose: 100 mg Lorazepam (Lorazepam 1 Mg Tablet) 1 mg PO TID PRN PRN Reason: anxiety/agitation Last Admin: 03/30/24 13:10 Dose: 1 mg Lorazepam (Lorazepam 1 Mg Tablet) 1 mg PO TID [facility] Last Admin: 04/05/24 14:04 Dose: 1 mg Magnesium Hydroxide (Milk Of Magnesia 30 Ml Oral.Susp) 30 ml PO DAILY PRN PRN Reason: Constipation Last Admin: 03/30/24 22:32 Dose: 30 ml Nicotine (Nicotine 21 Mg Patch.Td24) 21 mg TRANSDERMA DAILY PRN PRN Reason: smoking cessation Last Admin: 04/05/24 16:07 Dose: 21 mg Nicotine Polacrilex (Nicotine Polacrilex 2 Mg Gum) 4 mg BUCCAL Q2H PRN PRN Reason: Nicotine Cravings Last Admin: 04/05/24 16:08 Dose: 4 mg Olanzapine (Olanzapine Odt 10 Mg Tab.Rapdis) 20 mg TRANSLINGU BEDTIME [facility] Last Admin: 04/04/24 21:37 Dose: 20 mg Omeprazole (Omeprazole 20 Mg Capsule.Dr) 20 mg PO BID@0630,1630 [facility] Last Admin: 04/05/24 16:08 Dose: 20 mg Trazodone HCl (Trazodone Hcl 50 Mg Tablet) 50 mg PO BEDTIME MRX1 PRN PRN Reason: Insomnia Last Admin: 03/30/24 22:19 Dose: 50 mg Allergies Allergies Allergy/AdvReac Type Severity Reaction Status Date / Time No Known Allergies Allergy Verified 03/13/24 20:59 Assessment & Plan Assessment & Plan (1) Schizoaffective disorder, bipolar type: Status: Acute Code(s): F25.0 - Schizoaffective disorder, bipolar type Plan Mr. Knox is a 33 year-old male with hx of schizoaffective disorder who was brought in by police due to trying to enter other people's homes, presenting as paranoid. He came to [facility] from [place] two months ago to receive psychiatric tx. He was staying at his sister's house but was asked to leave when he suggested sexual intercourse to his niece. He presents as very paranoid, thinking sister is killing people and paid 11 million dollars to keep him in the hospital. 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 Pending collateral information. PLAN 03/17 may consider adding haldol scheduled instead of olanzapine. 03/20: Continue current plans and regimen 03/21 start depakote one time loading dose of 1000mg po once, depakote 500mg po BID. He had IM Haldol IM ativan 2mg after pushing peer, which he agreed to receive. unclear if haldol may be more effective for him or to wait on risperidone. 03/22 DC Risperdal, Chlorpromazine Continue Haldol, scheduled and prn as has been more effective in relief for pt. 03/23 EKG Increase Haldol to 10 mg tid Benztropine 1 mg bid 03/24 DC Benztropine Benadryl 50 mg bid (pt finds this more helpful he reports, team concurs) 03/25 DC Pepcid Prilosec 20 mg bid for reports of intermittent GI distress 03/26 Diagnostics- Valproate, CBCD, CHEMP 03/27 same presentation. reviewed medications and labs and valproic acid Therapeutic. It's possible that it will have increasing effect so will leave at current dose for now. Would consider switching to once/day long acting to help w/ adherence. 03/29: Haldol Dec 100 mg today Decrease PO scheduled Haldol to 5 mg bid Continue discussion about pt returning to his home in [place]. 03/31: Continue tx. Labs on 04/03 04/01: Continue current management and treatment plan. 04/02: Continue current management and treatment plan. 04/04: Continue plan of care. 04/05: Discharge 04/06. Reason for continued inpatient stay Substantial Risk for: stable for discharge Time Spent With Patient Time: Total time managing care of this patient today ____ minutes.
[2024-04-05 19:37] VITALS: BP 128/89; PULSE 112; RESP 16; TEMP 36.9; O2SAT 95
[2024-04-05] MEDS: OLANZapine ODT 10 MG TAB.RAPDIS 20 MG TRANSLINGU (20:02)
[2024-04-06] MEDS: Omeprazole 20 MG CAPSULE.DR PO (08:38)
[2024-04-06 08:44] VITALS: BP 132/77; PULSE 96; TEMP 36.4; O2SAT 98
[2024-04-06] MEDS: HaloperidoL 5 MG TABLET PO (09:00)
[2024-04-06] MEDS: diphenhydrAMINE HCL 25 MG CAPSULE 50 MG PO (09:00)
[2024-04-06] MEDS: LORazepam 1 MG TABLET PO (09:01)
[2024-04-06] MEDS: Divalproex Sodium 500 MG TABLET.DR PO (09:01)
--- NOTE | 2024-04-06 16:23 | PM.PSYDC ---
DS: Providers Provider Date of Service: 04/06/24 Date of admission: 03/15/24 12:15 Date of discharge: 04/06/24 Primary care physician: Unknown Physician Admitting clinician: Isabella Gtz Attending physician on admission: Prasad Meeks Attending physician on discharge: Prasad Meeks Discharging clinician: Edelmira Mendez DS: Diagnosis Discharge Diagnosis (1) Schizoaffective disorder, bipolar type: Status: Acute DS: Medications Discharge Medications Home Medications: Previous Rx's ?Medication ?Instructions ?Recorded diphenhydramine HCl 25 mg capsule 50 mg (2 x 25 mg) PO BID #60 caps 04/05/24 (Banophen) divalproex 500 mg tablet,delayed 500 mg PO TID #45 tabs 04/05/24 release haloperidol 5 mg tablet 5 mg PO BID #30 tabs 04/05/24 haloperidol decanoate 50 mg/mL 100 mg (2 mL) IM Q28D #0 mL 04/05/24 intramuscular solution lorazepam 0.5 mg tablet 0.5 mg PO TID #45 tabs 04/05/24 olanzapine 10 mg disintegrating 20 mg (2 x 10 mg) translingual 04/05/24 tablet BEDTIME #15 tabs omeprazole 20 mg capsule,delayed 20 mg PO BID@0630,1630 #30 caps 04/05/24 release Mental Status Exam Mental Status Exam Patient Appearance: Appropriate Patient Orientation: Person, Place, Time and Situation Level of Consciousness: Alert Patient Behavior: Appropriate, Talkative, Cooperative, Distractible and Good Eye Contact Mood Description: Appropriate Affect Description: Appropriate Patient Cognition Impaired: No Ability to Follow Directions: Good Speech Pattern: Spontaneous Speech Memory Description: Episodic Impaired Hallucinations: None Delusions: Not Present Thought Content: positive for [place], positive for Circum[place] and positive for Goal Oriented Judgement: Good Data Data Completed and Pending Completed studies during hospitalization [Text1]: 04/04/24 09:18 Valproic Acid 64.0 DS: Summary Hospital Course Hospital Course: Admission to adult psychiatry for exacerbation of symptoms of schizoaffective disorder, bipolar type. Pt to [place] from [place] ~60 days prior to admit. Pt living with sister, however developed sx of acute psychosis, making sexual suggestions to his niece, entering neighbors homes with delusions of being wealthy and being an [employer] agent which precipitated consult and admission. Toxicology positive for cannabis. Pt was agitated and aggressive upon admission. Section Seven was filed. Pt was intrusive with female care providers initially. He did accept medications and was able to recompensate on a regime of Haldol, Olanzapine, Valproate and he tolerated his first injection of Haldol Dec. Family discussed with pt that he would not be able to remain in the family home locally, so, it was decided he would return to the family home in [place]. Pt's team made these arrangements with him and family will assist pt in transportation to the airport to return. Status at Discharge Functional status at discharge: independent ambulation Overall status at discharge: patient is progressing back to baseline Time Spent with Patient Time attestation: Total time managing care of this patient today ____ minutes. Time spent: Less than 30 minutes Discharge Plan Discharge Anticipated Discharge Date/Time: 04/06/24 12:00 Patient Disposition: Home, Self-Care Discharge Diagnosis: Schizoaffective Disorder, Bipolar Type Referrals: Physician,Unknown J [Primary Care Provider] - 1 Week Discharge Medications: New diphenhydramine HCl [Banophen] 25 mg Capsule 50 mg PO BID Qty: 60 1RF haloperidol 5 mg Tablet 5 mg PO BID Qty: 30 1RF divalproex 500 mg Tablet,Delayed Release (Dr/Ec) 500 mg PO TID Qty: 45 1RF olanzapine 10 mg Tablet,Disintegrating 20 mg translingual BEDTIME Qty: 15 0RF omeprazole 20 mg Capsule,Delayed Release(Dr/Ec) 20 mg PO BID@0630,1630 Qty: 30 1RF haloperidol decanoate 50 mg/mL Solution 100 mg IM Q28D Qty: 0 0RF lorazepam 0.5 mg tablet 0.5 mg PO TID Qty: 45 1RF Discharge Orders: Discharge Order (Routine); Ordered 04/06/24 Ordered By: Edelmira Mendez Diet: Advance to usual diet Activity on Discharge: As tolerated Stand Alone Forms: Patient Portal Discharge page, Community Support Print Language: Lao Care Plan Goals: Mood and Behavioral Stabilization Health Concerns: Mood and Behavioral Stabilization Plan of Treatment: Attend scheduled appointments Take medications as directed. Haldol Injection is due on 04/29/24. Depakote Level 04/04/24 is 64 Call with any questions or concerns [facility] in [place] refused to accept the prescriptions. Assessment: No SI/HI/AH/VH Psychosis resolved No sx of cathleen Pt will return to the family home in [place] today. Discharge Date/Time: 04/06/24 11:10
== END 2024-04-06 11:10 | disposition home or self-care (01) | DRG 885 ==
LOC: HO.ED 03-14 13:24 → HO.PM5 03-15 12:24
PROVIDERS: Admitting Provider Psychiatry & Neurology Psychiatry; Emergency Provider Emergency Medicine; Visit Provider Clinical Nurse Specialist Psychiatric/Mental Health, Adult
DX: F25.0 Schizoaffective disorder, bipolar type (principal); F17.210 Nicotine dependence, cigarettes, uncomplicated; Z71.6 Tobacco abuse counseling; Z79.899 Other long term (current) drug therapy
CPT/HCPCS: 36415; 80048; 80053; 80061; 80076; 80164; 80307; 81003; 82140; 83036; 84443; 85025; 93005; 99285; J1200; J1630; J1631; J2060; S9485

== ENCOUNTER 2024-03-15 12:15 | Outpatient (BNV) | payer OTHER, MEDICAID, SELFPAY | END 2024-03-23 | PROVIDERS: Admitting Provider Psychiatry & Neurology Psychiatry; Emergency Provider Emergency Medicine; Visit Provider Internal Medicine | DX: R00.0 Tachycardia, unspecified (principal) | CPT/HCPCS: 93010 ==

== ENCOUNTER → 2024-03-15 12:15 | Outpatient (BNV) | payer OTHER, MEDICAID, SELFPAY | PROVIDERS: Admitting Provider Psychiatry & Neurology Psychiatry; Emergency Provider Emergency Medicine; Visit Provider Psychiatry & Neurology Psychiatry | DX: F25.0 Schizoaffective disorder, bipolar type (principal) | CPT/HCPCS: 90792; 99231; 99232; 99238 ==